=== PATIENT | female | born 2000 | race Hispanic/Latino ===

== ENCOUNTER 2019-12-09 19:02 | Emergency (ER) | payer OTHER, SELFPAY ==
--- NOTE | 2019-12-09 22:11 | EDPHYS ---
Physician Documentation [facility] Name: Sherrell Odom Age: 19 yrs Sex: Female : 2000 Arrival Date: 12/09/2019 Time: 19:07 Bed 18 Private MD: ED Physician Jarrod June HPI: 12/08 21:05 This 19 yrs old Female presents to ER via Wheelchair with complaints of Knee la1 Injury, Ankle Injury. 21:05 The patient presents with pain, that is acute. The complaints affect the right knee and la1 right ankle. Context: The problem was sustained anabaptism, resulted from a mis-step, the patient can partially bear weight, the patient is able to ambulate, with mild difficulty. Onset: The symptoms/episode began/occurred just prior to arrival. Associated signs and symptoms: Pertinent negatives calf tenderness, fever, numbness, tingling, weakness. Treatment prior to arrival includes: no previous treatment. Severity of symptoms: At their worst the symptoms were mild. 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 - Social history:: Smoking status: Patient denies any tobacco usage or history of. ROS: 21:06 Constitutional: Negative for fever, chills, and weight loss, Eyes: Negative for injury, la1 pain, redness, and discharge, Cardiovascular: Negative for chest pain, palpitations, and edema, Respiratory: Negative for shortness of breath, cough, wheezing, and pleuritic chest pain, Abdomen/GI: Negative for abdominal pain, nausea, vomiting, diarrhea, and constipation, Back: Negative for injury and pain. 21:06 Skin: Negative for injury, rash, and discoloration. 21:06 MS/extremity: Positive for pain, of the right knee and ankle. Exam: 21:07 Constitutional: This is a well developed, well nourished patient who is awake, alert, la1 and in no acute distress. Head/Face: Normocephalic, atraumatic. Chest/axilla: Normal chest wall appearance and motion. Respiratory: No increased work of breathing Back: No spinal tenderness. No costovertebral tenderness. Full range of motion. Skin: Warm, dry with normal turgor. Normal color with no rashes, no lesions, and no evidence of cellulitis. MS/ Extremity: Pulses equal, no cyanosis. Neurovascular intact. Full, normal range of motion. Vital Signs: 19:35 BP 101 / 61; Pulse 84; Resp 16; Temp 97.5; Pulse Ox 100% on R/A; Weight 79.38 kg; aa1 Height 5 ft. 2 in. (157.48 cm); Pain 9/10; 22:30 BP 115 / 75; Pulse 80; Resp 17; Temp 98.4; Pulse Ox 99% on R/A; rr5 19:35 Body Mass Index 32.01 (79.38 kg, 157.48 cm) aa1 MDM: 21:03 Patient medically screened. la1 22:09 Data reviewed: vital signs, nurses notes, radiologic studies, I have discussed the la1 patient's presentation/case with the attending Emergency Department Physician; and as a result, I will discharge patient. Data interpreted: Pulse oximetry: on room air is 100 %. Interpretation: normal. Test interpretation: by ED physician or midlevel provider: plain radiologic studies, no fractures or dislocations apparent on xray. Counseling: I had a detailed discussion with the patient and/or guardian regarding: the historical points, exam findings, and any diagnostic results supporting the discharge/admit diagnosis, radiology results, the need for outpatient follow up, a orthopedic surgeon. Admission orders: after a detailed discussion of the patient's condition and case, the admit orders are written by me. ED course: Pt able to bare weight without assistance, no obvious fractures on xray will have FU with ortho. 12/08 19:30 Order name: Knee Right 2 View XRAY tw4 12/08 19:30 Order name: Ankle Right 2 View XRAY tw4 Administered Medications: No medications were administered Disposition: 12/09 06:56 Co-signature as Attending Physician, Jarrod June MD I agree with the assessment and tw4 plan of care. Disposition: 12/09/19 22:10 Discharged to Home. Impression: Pain in right ankle and joints of right foot, Pain in right knee. - Condition is Stable. - Discharge Instructions: RICE for Routine Care of Injuries, Knee Pain, Ankle Pain. - Medication Reconciliation Form, Thank You Letter form. - Follow up: Private Physician; When: 5 - 6 days; Reason: Recheck today's complaints, Re-evaluation by your physician. - Problem is new. - Symptoms have improved. Signatures: Dispatcher [employer] EDMS Uyen Wilder RN RN aa1 Abdirizak Quinones, CANT GANG SAWYER-C CANT GANG SAWYER-Cla1 Jarrod June MD MD tw4 Osman De La Rosa RN RN rr5 Corrections: (The following items were deleted from the chart) 12/08 22:31 22:10 12/09/2019 22:10 Discharged to Home. Impression: Pain in right ankle and joints rr5 of right foot; Pain in right knee. Condition is Stable. Forms are Medication Reconciliation Form, Thank You Letter, Antibiotic Education, Prescription Opioid Use. Follow up: Private Physician; When: 5 - 6 days; Reason: Recheck today's complaints, Re-evaluation by your physician. Problem is new. Symptoms have improved. la1
--- NOTE | 2019-12-09 22:11 | ER ---
Nurse's Notes [facility] Name: Sherrell Odom Age: 19 yrs Sex: Female : 2000 Arrival Date: 12/09/2019 Time: 19:07 Bed 18 Private MD: Diagnosis: Pain in right ankle and joints of right foot;Pain in right knee Presentation: 12/08 19:35 Chief complaint: Patient states: she was playing a game at [employer] and jumped to catch a aa1 ball and when she landed she twisted her ankle. C/O pain in R ankle and R knee. No obvious injury noted. Coronavirus screen: The patient has NOT traveled to a country currently being monitored by the [facility] within the last 14 days. Proceed with normal triage procedures. Ebola Screen: No symptoms or risks identified at this time. Initial Sepsis Screen: Does the patient meet any 2 criteria? No. Patient's initial sepsis screen is negative. Does the patient have a suspected source of infection? No. Patient's initial sepsis screen is negative. Risk Assessment: Do you want to hurt yourself or someone else? Patient reports no desire to harm self or others. Onset of symptoms was December 09, 2019. Care prior to arrival: None. Transition of care: patient was not received from another setting of care. 19:35 Method Of Arrival: Wheelchair aa1 19:35 Acuity: BONILLA 4 aa1 Triage Assessment: 19:35 General: Appears in no apparent distress. comfortable, Behavior is calm, cooperative, aa1 appropriate for age. 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 - Social history:: Smoking status: Patient denies any tobacco usage or history of. Screenin:00 Abuse screen: Denies threats or abuse. Denies injuries from another. Nutritional rr5 screening: No deficits noted. Tuberculosis screening: No symptoms or risk factors identified. Fall Risk None identified. Total Encinas Fall Scale indicates No Risk (0-24 pts). Assessment: 21:00 General: Appears in no apparent distress. comfortable, Behavior is calm, cooperative, rr5 appropriate for age. 21:00 Pain: Complains of pain in right knee and anterior aspect of right ankle Pain does not rr5 radiate. Pain currently is 9 out of 10 on a pain scale. Quality of pain is described as aching, Pain began suddenly, Is intermittent. Neuro: Level of Consciousness is awake, alert, obeys commands, Oriented to person, place, time, situation. Cardiovascular: Capillary refill < 3 seconds Patient's skin is warm and dry. Respiratory: Airway is patent Respiratory effort is even, unlabored, Respiratory pattern is regular, symmetrical. GI: No signs and/or symptoms were reported involving the gastrointestinal system. : No signs and/or symptoms were reported regarding the genitourinary system. EENT: No signs and/or symptoms were reported regarding the EENT system. Derm: Skin is intact, is healthy with good turgor, Skin temperature is warm. Musculoskeletal: Circulation, motion, and sensation intact. Capillary refill < 3 seconds, Reports pain in right knee and anterior aspect of right ankle Pain is 9 out of 10 on a pain scale. 22:30 Reassessment: Patient appears in no apparent distress at this time. Patient is alert, rr5 oriented x 3, equal unlabored respirations, skin warm/dry/pink. discharge instruction given and explained without complaints made. Vital Signs: 19:35 BP 101 / 61; Pulse 84; Resp 16; Temp 97.5; Pulse Ox 100% on R/A; Weight 79.38 kg; aa1 Height 5 ft. 2 in. (157.48 cm); Pain 9/10; 22:30 BP 115 / 75; Pulse 80; Resp 17; Temp 98.4; Pulse Ox 99% on R/A; rr5 19:35 Body Mass Index 32.01 (79.38 kg, 157.48 cm) aa1 ED Course: 19:07 Patient arrived in ED. es 19:35 Arm band placed on right wrist. Patient placed in waiting room, Patient notified of aa1 wait time. 19:36 Triage completed. aa1 20:04 Knee Right 2 View XRAY In Process Unspecified. EDMS 20:04 Ankle Right 2 View XRAY In Process Unspecified. EDMS 20:48 Osman De La Rosa, CHOLO is Primary Nurse. rr5 21:03 Abdirizak Quinones FNP-C is [facility]. la1 21:03 Jarrod June MD is Attending Physician. la1 22:00 No provider procedures requiring assistance completed. Patient did not have IV access rr5 during this emergency room visit. 22:25 Royal wrap to right knee. rr5 22:30 Patient has correct armband on for positive identification. Bed in low position. Call rr5 light in reach. Administered Medications: No medications were administered Outcome: 22:10 Discharge ordered by . la1 22:30 Discharged to home ambulatory, with family. rr5 22:30 Condition: stable 22:30 Discharge instructions given to patient, Instructed on discharge instructions, follow up and referral plans. Demonstrated understanding of instructions, follow-up care. 22:31 Patient left the ED. rr5 Signatures: Dispatcher [employer] EDUyen Mustafa, RN RN aa1 Milagros Jessica Lee, FNP-C SALES OPERATIONS DIRECTOR-[facility] Osman De La Rosa RN RN rr5
[2019-12-09 23:02] VITALS: BP 101/61; TEMP 97.5; O2SAT 100
--- NOTE | 2019-12-10 08:27 | RAD REPORT ---
EXAM DESCRIPTION: RAD - Knee Right 2 View - 12/09/2019 8:05 pm CLINICAL HISTORY: PAIN, knee injury COMPARISON: No comparisons FINDINGS: No fracture, dislocation or periosteal reaction.No joint effusion seen. No joint space katie rowing. No foreign body or soft tissue abnormality. Cortical lucency over the proximal tibia on the A P projection is believed to be a summation artifact. IMPRESSION: Negative right knee. Clinical concerns for internal derangement or occult bony injury could be further assessed with MR imaging.
--- NOTE | 2019-12-10 08:28 | RAD REPORT ---
EXAM DESCRIPTION: RAD - Ankle Right 2 View - 12/09/2019 8:03 pm CLINICAL HISTORY: PAIN, trauma, ankle injury COMPARISON: No comparisons FINDINGS: No fracture, dislocation or periosteal reaction. No joint effusion seen. No joint space na rrowing. No soft tissue abnormality. IMPRESSION: Negative right ankle
== END 2019-12-09 22:31 | disposition home or self-care (01) ==
LOC: ER 19:02
DX: M25.571 Pain in right ankle and joints of right foot (principal); M25.561 Pain in right knee; X50.1XXA Overexertion from prolonged static or awkward postures, initial encounter; Y93.89 Activity, other specified; Y92.9 Unspecified place or not applicable; Y99.8 Other external cause status; Z88.0 Allergy status to penicillin
CPT/HCPCS: 99283

== ENCOUNTER 2021-02-21 00:27 | Emergency (ER) | payer SELFPAY ==
[2021-02-21] MEDS ORDERED: FLUORESCEIN SODIUM 1 MG/WRAP ONE (01:35)
[2021-02-21] MEDS ORDERED: TETRACAINE HCL 0.5% 4ML OPTH ONE (01:35)
--- NOTE | 2021-02-21 02:07 | EDPHYS ---
Physician Documentation [facility] Name: Sherrell Odom Age: 20 yrs Sex: Female : 2000 Arrival Date: 02/21/2021 Time: 00:30 Bed 23 Private MD: ED Physician Segundo Hidalgo HPI: 02/21 02:01 This 20 yrs old Female presents to ER via Ambulatory with complaints of mh7 Redness of Eye, Eye Pain. 02:01 The patient is experiencing burning, matting or discharge, pain, redness, tearing, The mh7 patient sustained None. to the left eye, caused by an unknown mechanism. Onset: The symptoms/episode began/occurred yesterday. Duration: the symptoms are continuous. Aggravated by rubbing, Alleviated by nothing. Associated signs and symptoms: Pertinent negatives: chills, dizziness, ear ache, fever, headache, runny nose. Patient wears soft contacts. Severity of symptoms: At their worst the symptoms were moderate last night, in the emergency department the symptoms are unchanged. 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 - Social history:: Smoking status: Patient denies any tobacco usage or history of. ROS: 02:01 Constitutional: Negative for fever, chills, and weight loss, ENT: Negative for injury, mh7 pain, and discharge, Neck: Negative for injury, pain, and swelling, Cardiovascular: Negative for chest pain, palpitations, and edema, Respiratory: Negative for shortness of breath, cough, wheezing, and pleuritic chest pain, Abdomen/GI: Negative for abdominal pain, nausea, vomiting, diarrhea, and constipation, Back: Negative for injury and pain, : Negative for injury, bleeding, discharge, and swelling, MS/Extremity: Negative for injury and deformity, Skin: Negative for injury, rash, and discoloration, Neuro: Negative for headache, weakness, numbness, tingling, and seizure, Psych: Negative for depression, anxiety, suicide ideation, homicidal ideation, and hallucinations, Allergy/Immunology: Negative for hives, rash, and allergies, Endocrine: Negative for neck swelling, polydipsia, polyuria, polyphagia, and marked weight changes, Hematologic/Lymphatic: Negative for swollen nodes, abnormal bleeding, and unusual bruising. Exam: 02:01 Constitutional: This is a well developed, well nourished patient who is awake, alert, mh7 and in no acute distress. Head/Face: Normocephalic, atraumatic. 02:01 Neck: Trachea midline, no thyromegaly or masses palpated, and no cervical lymphadenopathy. Supple, full range of motion without nuchal rigidity, or vertebral point tenderness. No Meningismus. Skin: Warm, dry with normal turgor. Normal color with no rashes, no lesions, and no evidence of cellulitis. Neuro: Awake and alert, GCS 15, oriented to person, place, time, and situation. Cranial nerves II-XII grossly intact. Motor strength 5/5 in all extremities. Sensory grossly intact. Cerebellar exam normal. Normal gait. Psych: Awake, alert, with orientation to person, place and time. Behavior, mood, and affect are within normal limits. 02:01 Eyes: Periorbital structures: appear normal, Pupils: equal, round, and reactive to light and accomodation, Extraocular movements: intact throughout, Conjunctiva: injected, in the left eye, Corneas: abrasion, that is moderate sized, on the left, at 6 o'clock, a fluorescein strip employed to appreciate the findings, Sclera: no appreciated abnormality, Lids and lashes: appear normal, funduscopic exam reveals no obvious abnormalities, Visual wright: are intact, Nystagmus: is not appreciated, Intraocular pressure: unable to test, no instrument available, no slit lamp available. Vital Signs: 00:54 BP 111 / 74; Pulse 64; Resp 16 S; Temp 98.5(O); Pulse Ox 99% on R/A; Weight 72.12 kg bb (R); Height 5 ft. 3 in. (160.02 cm) (R); Pain 7/10; 00:54 Body Mass Index 28.17 (72.12 kg, 160.02 cm) bb MDM: 02:01 Differential diagnosis: Corneal abrasion of left eye. Corneal ulcer of left eye. mh7 Foreign body in left eye. Acute iritis of left eye. Chemical conjunctivitis in left eye. Allergic conjunctivitis in left eye. Infectious conjunctivitis in left eye. Data reviewed: vital signs, nurses notes. Counseling: I had a detailed discussion with the patient and/or guardian regarding: the historical points, exam findings, and any diagnostic results supporting the discharge/admit diagnosis, the need for outpatient follow up, an opthalmologist, to return to the emergency department if symptoms worsen or persist or if there are any questions or concerns that arise at home. Response to treatment: the patient's symptoms have markedly improved after treatment. 02:07 Patient medically screened. mh7 02/21 02:30 Order name: Eye Tray; Complete Time: :30 bb Administered Medications: 02:00 Drug: Tetracaine Drops 0.5 % 1 drops {Note: administered by Dr Hidalgo.} Route: bb Ophthalmic; Site: left eye; :31 Follow up: Response: No adverse reaction bb 02:00 Drug: Fluorescein Strip 1 strip {Note: administered by Dr Hidalgo.} Route: Ophthalmic; bb Site: left eye; :31 Follow up: Response: No adverse reaction bb Disposition: 02/21/21 02:07 Discharged to Home. Impression: Corneal Abrasion, Left. - Condition is Stable. - Prescriptions for Ciloxan 0.3 % Ophthalmic Drops - instill 2 drop by OPHTHALMIC route every 6 hours for 7 days; 5 milliliter. Ibuprofen 600 mg Oral Tablet - take 1 tablet by ORAL route every 8 hours As needed take with food; 15 tablet. - Medication Reconciliation Form, Thank You Letter, Antibiotic Education, Prescription Opioid Use form. - Follow up: Private Physician; When: 1 - 2 days; Reason: Worsening of condition, Recheck today's complaints, Continuance of care, Re-evaluation by your physician. Follow up: Mildred Smith MD; When: 1 - 2 days; Reason: Worsening of condition, Recheck today's complaints. - Problem is new. - Symptoms have improved. Signatures: Jennyfer Beckham RN RN bb Segundo Hidalgo MD MD mh7 Corrections: (The following items were deleted from the chart) 02:32 02:07 02/21/2021 02:07 Discharged to Home. Impression: Corneal Abrasion, Left. bb Condition is Stable. Forms are Medication Reconciliation Form, Thank You Letter, Antibiotic Education, Prescription Opioid Use. Follow up: Private Physician; When: 1 - 2 days; Reason: Worsening of condition, Recheck today's complaints, Continuance of care, Re-evaluation by your physician. Follow up: Mildred Smith; When: 1 - 2 days; Reason: Worsening of condition, Recheck today's complaints. Problem is new. Symptoms have improved. mh7
--- NOTE | 2021-02-21 02:07 | ER ---
Nurse's Notes [facility] Name: Sherrell Odom Age: 20 yrs Sex: Female : 2000 Arrival Date: 02/21/2021 Time: 00:30 Bed 23 Private MD: Diagnosis: Corneal Abrasion, Left Presentation: 02/21 00:54 Chief complaint: Patient states: her left eye became red and irritated this morning bb denies loss of vision does wear contact lenses. Coronavirus screen: At this time, the client does not indicate any symptoms associated with coronavirus-19. Ebola Screen: No symptoms or risks identified at this time. Mechanism of Injury: No Mechanism of Injury. The patient denies any loss of vision. Initial Sepsis Screen: Does the patient meet any 2 criteria? No. Patient's initial sepsis screen is negative. Does the patient have a suspected source of infection? No. Patient's initial sepsis screen is negative. Risk Assessment: Do you want to hurt yourself or someone else? Patient reports no desire to harm self or others. Onset of symptoms was February 20, 2021. 00:54 Method Of Arrival: Ambulatory bb 00:54 Acuity: BONILLA 4 bb Triage Assessment: 00:56 General: Appears in no apparent distress. uncomfortable, Behavior is calm, cooperative. bb Pain: Complains of pain in left eye Pain currently is 7 out of 10 on a pain scale. EENT: sclera left eye reddened. Neuro: Level of Consciousness is awake, alert, obeys commands, Oriented to person, place, time, situation. Cardiovascular: Capillary refill < 3 seconds Patient's skin is warm and dry. Respiratory: Respiratory effort is even, unlabored, Respiratory pattern is regular. GI: No signs and/or symptoms were reported involving the gastrointestinal system. Derm: Skin is pink, warm \T\ dry. Musculoskeletal: Circulation, motion, and sensation intact. 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 - Social history:: Smoking status: Patient denies any tobacco usage or history of. Screenin:15 Abuse screen: Denies threats or abuse. Nutritional screening: No deficits noted. bb Tuberculosis screening: No symptoms or risk factors identified. Fall Risk None identified. Assessment: 01:15 Reassessment: No changes from previously documented assessment. see triage assessment. bb 01:15 EENT: Eyes sclera to left eye is reddened. Sclera/Cornea are reddened in left eye. bb 01:49 Reassessment: Dr Hidalgo at bedside for pt evaluation. bb 02:29 Reassessment: Patient is alert, oriented x 3, equal unlabored respirations, skin bb warm/dry/pink. pt verbalized understanding of and agrees to plan of care discharge instructions given pt ambulated with steady gait to exit accompanied by friend. Vital Signs: 00:54 BP 111 / 74; Pulse 64; Resp 16 S; Temp 98.5(O); Pulse Ox 99% on R/A; Weight 72.12 kg bb (R); Height 5 ft. 3 in. (160.02 cm) (R); Pain 7/10; 00:54 Body Mass Index 28.17 (72.12 kg, 160.02 cm) bb ED Course: 00:30 Patient arrived in ED. cf2 00:55 Triage completed. bb 00:56 Arm band placed on Patient placed in waiting room, Patient notified of wait time. bb 01:15 Jennyfer Beckham, RN is Primary Nurse. bb 01:15 Patient has correct armband on for positive identification. Bed in low position. Call bb light in reach. Side rails up X 1. 01:42 Segundo Hidalgo MD is Attending Physician. [facility] 02:06 Mildred Smith MD is Referral Physician. [facility] 02:31 No provider procedures requiring assistance completed. Patient did not have IV access bb during this emergency room visit. Administered Medications: 02:00 Drug: Tetracaine Drops 0.5 % 1 drops {Note: administered by Dr Hidalgo.} Route: bb Ophthalmic; Site: left eye; :31 Follow up: Response: No adverse reaction bb 02:00 Drug: Fluorescein Strip 1 strip {Note: administered by Dr Hidalgo.} Route: Ophthalmic; bb Site: left eye; 02:31 Follow up: Response: No adverse reaction bb Outcome: 02:07 Discharge ordered by . [facility] 02:31 Discharged to home ambulatory, with friend. chelita 02:31 Condition: stable 02:31 Discharge instructions given to patient, Instructed on discharge instructions, follow up and referral plans. medication usage, Demonstrated understanding of instructions, follow-up care, medications, Prescriptions given X 2. 02:32 Patient left the ED. chelita Signatures: Jennyfer Beckham RN RN Cristy Cárdenas 2 Segundo Hidalgo MD MD mh7
[2021-02-21 02:45] VITALS: BP 111/74; TEMP 98.5; O2SAT 99
== END 2021-02-21 02:32 | disposition home or self-care (01) ==
LOC: ER 00:27
DX: S05.02XA Injury of conjunctiva and corneal abrasion without foreign body, left eye, initial encounter (principal); Z88.0 Allergy status to penicillin
CPT/HCPCS: 99283

== ENCOUNTER → 2023-12-16 | Emergency (ER) | payer OTHER, SELFPAY ==
[~2023-12-16] MED LIST: DIPHENHYDRAMINE 50 MG/ML VIAL ONE; KETOROLAC 30 MG/ML INJ ONE; METOCLOPRAMIDE 10 MG/2mL INJ ONE; NA CHLORIDE 0.9% 1,000 ML ONE
--- OUTSIDE RECORDS SUMMARY | 2023-12-16 05:41 | XMS REPORT | Continuity of Care Document ---
Author Name Unknown Address [address] [facility] [place] [address] [facility] Address [address] [facility] [place] [address] Care Team Providers Care Consumer Insight Analyst Name Role Phone VIRGINIA MEDRANO Primary Care Physician SANDRA Mccormack Attending Clinician SANDRA Farnsworth Attending Clinician Farrah porter Doctor Unassigned, [place] Attending Clinician U LEATHA Flanagan Attending Clinician Unavailable MARÍA MCDONOUGH Attending Clinician Unavailable María Mcdonough MD Attending Clinician [phone] Greg Malik MD Attending Clinician [phone] Fontanbrenna BLANK, FLIGHT CREW TIME CLERK, R Attending Clinician [phone] Pob, [facility] Main Attending Clinician Unavailabl e 2, [facility] Attending Clinician Unavailable Leatha Jacques PA-C Attending Clinician [phone] Lashaun Murphy MD Attending Clinician [phone] JAMISON KIM Attending Clinician Unavailable 1, -[facility] Us Room Attending Clinician Unavailab Jamison Bar MD Attending Clinician [phone] [facility] Attending Clinician + Jessica Laurent RN Attending Clinician Unavailable CATARINO DAY Attending Clinician Unavailable [facility], [facility] Attending Clinician Unavailable Solange WHEELER, Vianney Kirby Attending Clinician [phone] VIR[place]IA MEDRANO Attending Clinician Unavail able VANESSA MADDEN Attending Clinician Unavailable VANESSA MADDEN Attending Clinician Unavailable Vanessa Madden MD Attending Clinician [phone] MARÍA MCDONOUGH Admitting Clinician Unavailable María Mcdonough MD Admitting Clinician Payers Payer Name Policy Type Policy Number Effective Date Expirati on Date Source KEYON NUÑEZ [id number] 2021 00:00:[address] [facility] [id number] 2022 00:00:00 2022 00:00:00 [place] [id number] 2022 00:00:00 Problems Condition Name Condition Details Condition Category Status Onset Date Resolution Date Last Treatment Date Treating Clinician Comments Source Liveborn , of [place] , born in hospital by vaginal delivery Liveborn infant, of [place] , born in hospital by vaginal delivery Disease Active 9-13 00:00: 00 [facility] 39 weeks gestation of 39 weeks gestation of Disease Active -12 00:00: 00 [facility] Encounter for planned induction of labor Encounter for planned induction of labor Disease Active 9-12 00:00: 00 [facility] Acute cystitis without hematuria Acute cystitis without hematuria Disease Active 3-07 00:00: 00 [facility] 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 Repeat pap in 12 months [facility] Susceptibl e to varicella (non-immun e), currently Susceptibl e to varicella (non-immun e), currently Disease Active 2- 00:00: 00 Overview: Formattin g of this note might be different from the original. Address pp [facility] Supervisio n of high-risk Supervisio n of high-risk Disease Active 2- 00:00: 00 [facility] Allergies, Adverse Reactions, Alerts Allergy Name Allergy Type Status Severity Reaction(s) Onset Date Inactive Date Treating Clinician Comments Source PENICILL IN DRUG INGREDI Active Rash 10-28 00:00: 00 [facility] Penicill in Propensi ty to adverse reaction s Active Rash 10-28 00:00: 00 [facility] Social History Social Habit Start Date Stop Date Quantity Comments Source ASSERTION 2021-09-18 00:00:00 [facility] History of Social function 2022-06-09 00:00:00 2022-06-09 00:00:00 [facility] Exposure to SARS-CoV-2 (event) 2022-05-29 00:00:00 2022-06-08 12:11:00 Not sure [facility] Alcohol intake 2021-12-01 00:00:00 2021-12-01 00:00:00 Ex-drinker (finding) [facility] Tobacco use and exposure 2021-10-28 00:00:00 2021-10-28 00:00:00 Smokeless tobacco non-user [facility] Sex Assigned At 2000 00:00:00 2000 00:00:00 [facility] Smoking Status Start Date Stop Date Source Never smoked tobacco [facility] Medications Ordered Medication Name Filled Medication Name Start Date Stop Date Current Medication? Ordering Clinician Indication Dosage Frequency Signature (SIG) Comments Components Source vitamin w/FA tablet 06-10 00:00: 00 Yes [id number] 1{tbl} Take 1 tablet by mouth in the morning. [facility] docusate 100 mg capsule 06-10 00:00: 00 Yes [id number] 200mg Take 2 capsules by mouth once daily as needed for Constipati on. [facility] ferrous sulfate 325 mg (65 mg iron) tablet 06-10 00:00: 00 Yes [id number] 325mg Take 1 tablet by mouth in the morning and 1 tablet in the evening. [facility] ibuprofen 600 mg tablet 06-10 00:00: 00 Yes [id number] 600mg Take 1 tablet by mouth every 6 (six) hours as needed (Pain). Take with food or milk. [facility] vitamin w/FA tablet 06-10 00:00: 00 Yes [id number] 1{tbl} Take 1 tablet by mouth in the morning. [facility] docusate 100 mg capsule 06-10 00:00: 00 Yes [id number] 200mg Take 2 capsules by mouth once daily as needed for Constipati on. [facility] ferrous sulfate 325 mg (65 mg iron) tablet 06-10 00:00: 00 Yes [id number] 325mg Take 1 tablet by mouth in the morning and 1 tablet in the evening. [facility] ibuprofen 600 mg tablet 06-10 00:00: 00 Yes [id number] 600mg Take 1 tablet by mouth every 6 (six) hours as needed (Pain). Take with food or milk. [facility] rho(D) immune globulin (RHOGAM) syringe 300 mcg 06-09 10:12: 24 Yes 300ug 300 mcg, Intramuscu lar, ONCE, For 1 dose, Conditiona l, Routine [facility] witch Jennifer (TUCKS) 50 % topical pad 06-09 10:12: 19 Yes Topical, Q4HPRN, Starting on Wed06/09/22 at 0512, Until Discontinu ed, Routine, rectal/hem orrhoidal pain [facility] HYDROcodone -acetaminop hen (NORCO 5) 5-325 mg tablet 1 tablet 06-09 10:12: 19 Yes 1{tbl} 1 tablet, Oral, Q6HPRN, Starting on Wed06/09/22 at 0512, Until Discontinu ed, Routine, Pain (scale 7-10) [facility] ibuprofen (IBU) tablet 600 mg 06-09 10:12: 19 Yes 600mg 600 mg, Oral, Q6HPRN, Starting on Wed06/09/22 at 0512, Until Discontinu ed, Routine, Pain (scale 4-6) [facility] acetaminoph en (TYLENOL) tablet 650 mg 06-09 10:12: 19 Yes 650mg 650 mg, Oral, Q6HPRN, Starting on Wed06/09/22 at 05, Until Discontinu ed, Routine, Pain (scale 1-3) [facility] diphenhydrA MINE (BENADRYL) tablet 25 mg 06-09 10:12: 19 Yes 25mg 25 mg, Oral, Q6HPRN, Starting on Wed06/09/22 at 511, Until Discontinu ed, Routine, Sleep, Itching [facility] ondansetron (ZOFRAN (PF)) injection 4 mg 06-09 10:12: 19 Yes 4mg 4 mg, Slow IV Push, Q8HPRN, Starting on Wed06/09/22 at 511, Until Discontinu ed, Routine, Nausea and Vomiting (N/V) [facility] simethicone (GAS RELIEF (SIMETHICON E)) chewable tablet 160 mg 06-09 10:12: 19 Yes 160mg 160 mg, Oral, PC+HSPRN, Starting on Wed06/09/22 at 05, Until Discontinu ed, Routine, Gas [facility] docusate (COLACE) capsule 200 mg 06-09 10:12: 19 Yes 200mg 200 mg, Oral, QDAILYPRN, Starting on Wed06/09/22 at 05, Until Discontinu ed, Routine, Constipati on [facility] magnesium hydroxide (MILK OF MAGNESIA) 400 mg/5 mL suspension 30 mL 06-09 10:12: 19 Yes 30mL 30 mL, Oral, QDAILYPRN, Starting on Wed06/09/22 at 05, Until Discontinu ed, Routine, Constipati on [facility] benzocaine- menthol (DERMOPLAST ) 20-0.5 % topical spray 06-09 10:12: 19 Yes Topical, PRN, Starting on Wed06/09/22 at 05, Until Discontinu ed, Routine, Perineum discomfort [facility] fentaNYL-ro pivacaine 2 mcg/mL-0.1 % (PF) in NS 200 mL epidural infusion RTU 06-09 03:43: 00 06-09 12:09 :16 No Epidural, CONTINUOUS PRN, Starting on Wed06/08/22 at 2243, Until Wed06/09/22 at 0709, Routine, Intra-op [facility] fentaNYL-ro pivacaine 2 mcg/mL-0.1 % (PF) in NS 200 mL epidural infusion RTU 06-09 03:31: 00 06-09 12:09 :16 No Epidural, ONCE INTRA PROCEDURE, Starting on Wed06/08/22 at 2231, Until Wed06/09/22 at 0709, Routine, Intra-op [facility] lidocaine-e pinephrine (XYLOCAINE W/EPINEPHRI NE) 1.5 %-1:200,000 injection 06-09 03:27: 00 06-09 12:09 :16 No Epidural, ONCE INTRA PROCEDURE, Starting on Wed06/08/22 at 2227, Until Wed06/09/22 at 0709, Routine, Intra-op [facility] oxytocin (PITOCIN) 30 units in NS 500 mL IV infusion 06-08 17:50: 52 06-09 10:12 :22 No 2mU/min at 2-40 mL/hr, IV Infusion, TITRATE, Starting on Wed06/08/22 at 1250, Until Wed06/09/22 at 0512, BELGICA [facility] lactated ringers IV infusion 500 mL 06-08 17:45: 00 06-08 18:03 :00 No 500mL at 999 mL/hr, 500 mL, IV Infusion, ONCE, 1 dose, On Wed06/08/22 at 1245, Routine [facility] lactated ringers IV infusion 500 mL 06-08 16:54: 24 06-09 10:12 :22 No 500mL at 999 mL/hr, 500 mL, IV Infusion, PRN - SEE INSTRUCTIO NS, Starting on Wed06/08/22 at 1154, Until Wed06/09/22 at 0512, Routine [facility] lactated ringers IV infusion 500 mL 06-08 16:54: 24 06-09 03:28 :25 No 500mL at 999 mL/hr, 500 mL, IV Infusion, PRN - SEE INSTRUCTIO NS, 1 dose, Starting on Wed06/08/22 at 1154, Until Wed06/08/22 at 2228, Routine [facility] proMETHazin e (PHENERGAN) 25 mg in NaCl 0.9% (NS) 50 mL IV piggyback 06-08 16:54: 24 06-09 10:12 :22 No 25mg 25 mg, IV Piggyback, Q4HPRN, Starting on Wed06/08/22 at 1154, Until Wed06/09/22 at 0512, Routine, Nausea and Vomiting (N/V) [facility] D5W-LR IV infusion 1,000 mL 06-08 16:54: 24 06-09 10:12 :22 No 1000mL at 1-125 mL/hr, IV Infusion, TITRATE, Starting on Wed06/08/22 at 1154, Until Wed06/09/22 at 0512, Routine [facility] metroNIDAZO LE (FLAGYL) tablet 500 mg 04-14 05:45: 00 04-14 04:54 :00 No 500mg 500 mg, Oral, ONCE, 1 dose, On Wed04/14/22 at 0045, Routine
Reason for Anti-Infec tive: Documented Infection [facility] metroNIDAZO LE (FLAGYL) 500 mg tablet 04-14 00:00: 00 Yes [id number] 500mg Take 1 tablet by mouth every 12 (twelve) hours. [facility] metroNIDAZO LE (FLAGYL) 500 mg tablet 04-14 00:00: 00 Yes [id number] 500mg Take 1 tablet by mouth every 12 (twelve) hours. [facility] metroNIDAZO LE (FLAGYL) 500 mg tablet 04-14 00:00: 00 Yes [id number] 500mg Take 1 tablet by mouth every 12 (twelve) hours. [facility] metroNIDAZO LE (FLAGYL) 500 mg tablet 19 00:00: 00 Yes [id number] 500mg Take 1 tablet by mouth every 12 (twelve) hours. [facility] metroNIDAZO LE (FLAGYL) 500 mg tablet 04-14 00:00: 00 Yes [id number] 500mg Take 1 tablet by mouth every 12 (twelve) hours. [facility] metroNIDAZO LE (FLAGYL) 500 mg tablet 0 04-14 00:00: 00 Yes [id number] 500mg Take 1 tablet by mouth every 12 (twelve) hours. [facility] metroNIDAZO LE (FLAGYL) 500 mg tablet 0 04-14 00:00: 00 Yes [id number] 500mg Take 1 tablet by mouth every 12 (twelve) hours. [facility] metroNIDAZO LE (FLAGYL) 500 mg tablet 04-14 00:00: 00 06-02 00:00 :00 No [id number] 500mg Take 1 tablet by mouth every 12 (twelve) hours. [facility] ferrous sulfate 325 mg (65 mg iron) tablet 03-25 00:00: 00 Yes [id number] 325mg Take 1 tablet by mouth daily. [facility] ferrous sulfate 325 mg (65 mg iron) tablet 03-25 00:00: 00 Yes [id number] 325mg Take 1 tablet by mouth daily. [facility] ferrous sulfate 325 mg (65 mg iron) tablet 0 03-25 00:00: 00 Yes [id number] 325mg Take 1 tablet by mouth daily. [facility] ferrous sulfate 325 mg (65 mg iron) tablet 0 03-25 00:00: 00 Yes [id number] 325mg Take 1 tablet by mouth daily. [facility] ferrous sulfate 325 mg (65 mg iron) tablet 0 03-25 00:00: 00 Yes [id number] 325mg Take 1 tablet by mouth daily. [facility] ferrous sulfate 325 mg (65 mg iron) tablet 0 03-25 00:00: 00 Yes [id number] 325mg Take 1 tablet by mouth daily. [facility] ferrous sulfate 325 mg (65 mg iron) tablet 03-25 00:00: 00 Yes [id number] 325mg Take 1 tablet by mouth daily. [facility] ferrous sulfate 325 mg (65 mg iron) tablet 03-25 00:00: 00 Yes [id number] 325mg Take 1 tablet by mouth daily. [facility] ferrous sulfate 325 mg (65 mg iron) tablet 03-25 00:00: 00 Yes [id number] 325mg Take 1 tablet by mouth daily. [facility] ferrous sulfate 325 mg (65 mg iron) tablet 03-25 00:00: 00 Yes [id number] 325mg Take 1 tablet by mouth daily. [facility] ferrous sulfate 325 mg (65 mg iron) tablet 03-25 00:00: 00 Yes [id number] 325mg Take 1 tablet by mouth daily. [facility] ferrous sulfate 325 mg (65 mg iron) tablet 03-25 00:00: 00 Yes [id number] 325mg Take 1 tablet by mouth daily. [facility] ferrous sulfate 325 mg (65 mg iron) tablet 03-25 00:00: 00 Yes [id number] 325mg Take 1 tablet by mouth daily. [facility] ferrous sulfate 325 mg (65 mg iron) tablet 03-25 00:00: 00 Yes [id number] 325mg Take 1 tablet by mouth daily. [facility] ferrous sulfate 325 mg (65 mg iron) tablet 03-25 00:00: 00 Yes [id number] 325mg Take 1 tablet by mouth daily. [facility] ferrous sulfate 325 mg (65 mg iron) tablet 03-25 00:00: 00 Yes [id number] 325mg Take 1 tablet by mouth daily. [facility] ferrous sulfate 325 mg (65 mg iron) tablet 03-25 00:00: 00 06-10 00:00 :00 No [id number] 325mg Take 1 tablet by mouth daily. [facility] polycarboph il (FIBERCON) 625 mg tablet 03-24 00:00: 00 Yes [id number] 625mg Take 1 tablet by mouth daily. [facility] docusate (COLACE) 100 mg capsule 0 03-24 00:00: 00 Yes [id number] 100mg Take 1 capsule by mouth once daily as needed for Constipati on. [facility] polycarboph il (FIBERCON) 625 mg tablet 0 03-24 00:00: 00 Yes [id number] 625mg Take 1 tablet by mouth daily. [facility] docusate (COLACE) 100 mg capsule 0 03-24 00:00: 00 Yes [id number] 100mg Take 1 capsule by mouth once daily as needed for Constipati on. [facility] polycarboph il (FIBERCON) 625 mg tablet 0 03-24 00:00: 00 Yes [id number] 625mg Take 1 tablet by mouth daily. [facility] docusate (COLACE) 100 mg capsule 0 03-24 00:00: 00 Yes [id number] 100mg Take 1 capsule by mouth once daily as needed for Constipati on. [facility] polycarboph il (FIBERCON) 625 mg tablet 0 03-24 00:00: 00 Yes [id number] 625mg Take 1 tablet by mouth daily. [facility] docusate (COLACE) 100 mg capsule 0 03-24 00:00: 00 Yes [id number] 100mg Take 1 capsule by mouth once daily as needed for Constipati on. [facility] polycarboph il (FIBERCON) 625 mg tablet 0 03-24 00:00: 00 Yes [id number] 625mg Take 1 tablet by mouth daily. [facility] docusate (COLACE) 100 mg capsule 0 03-24 00:00: 00 Yes [id number] 100mg Take 1 capsule by mouth once daily as needed for Constipati on. [facility] polycarboph il (FIBERCON) 625 mg tablet 0 03-24 00:00: 00 Yes [id number] 625mg Take 1 tablet by mouth daily. [facility] docusate (COLACE) 100 mg capsule 2021-0 03-24 00:00: 00 Yes [id number] 100mg Take 1 capsule by mouth once daily as needed for Constipati on. [facility] polycarboph il (FIBERCON) 625 mg tablet 0 03-24 00:00: 00 Yes [id number] 625mg Take 1 tablet by mouth daily. [facility] docusate (COLACE) 100 mg capsule 0 03-24 00:00: 00 Yes [id number] 100mg Take 1 capsule by mouth once daily as needed for Constipati on. [facility] polycarboph il (FIBERCON) 625 mg tablet 0 03-24 00:00: 00 Yes [id number] 625mg Take 1 tablet by mouth daily. [facility] docusate (COLACE) 100 mg capsule 0 03-24 00:00: 00 Yes [id number] 100mg Take 1 capsule by mouth once daily as needed for Constipati on. [facility] polycarboph il (FIBERCON) 625 mg tablet 0 03-24 00:00: 00 Yes [id number] 625mg Take 1 tablet by mouth daily. [facility] docusate (COLACE) 100 mg capsule 0 03-24 00:00: 00 Yes [id number] 100mg Take 1 capsule by mouth once daily as needed for Constipati on. [facility] polycarboph il (FIBERCON) 625 mg tablet 0 03-24 00:00: 00 Yes [id number] 625mg Take 1 tablet by mouth daily. [facility] docusate (COLACE) 100 mg capsule 2021-0 03-24 00:00: 00 Yes [id number] 100mg Take 1 capsule by mouth once daily as needed for Constipati on. [facility] polycarboph il (FIBERCON) 625 mg tablet 0 03-24 00:00: 00 Yes [id number] 625mg Take 1 tablet by mouth daily. [facility] docusate (COLACE) 100 mg capsule 2021-0 03-24 00:00: 00 Yes [id number] 100mg Take 1 capsule by mouth once daily as needed for Constipati on. [facility] polycarboph il (FIBERCON) 625 mg tablet 2021-0 03-24 00:00: 00 Yes [id number] 625mg Take 1 tablet by mouth daily. [facility] docusate (COLACE) 100 mg capsule 0 03-24 00:00: 00 Yes [id number] 100mg Take 1 capsule by mouth once daily as needed for Constipati on. [facility] polycarboph il (FIBERCON) 625 mg tablet 0 03-24 00:00: 00 Yes [id number] 625mg Take 1 tablet by mouth daily. [facility] docusate (COLACE) 100 mg capsule 2021-0 03-24 00:00: 00 Yes [id number] 100mg Take 1 capsule by mouth once daily as needed for Constipati on. [facility] polycarboph il (FIBERCON) 625 mg tablet 0 03-24 00:00: 00 Yes [id number] 625mg Take 1 tablet by mouth daily. [facility] docusate (COLACE) 100 mg capsule 0 03-24 00:00: 00 Yes [id number] 100mg Take 1 capsule by mouth once daily as needed for Constipati on. [facility] polycarboph il (FIBERCON) 625 mg tablet 0 03-24 00:00: 00 Yes [id number] 625mg Take 1 tablet by mouth daily. [facility] docusate (COLACE) 100 mg capsule 0 03-24 00:00: 00 Yes [id number] 100mg Take 1 capsule by mouth once daily as needed for Constipati on. [facility] polycarboph il (FIBERCON) 625 mg tablet 0 03-24 00:00: 00 Yes [id number] 625mg Take 1 tablet by mouth daily. [facility] docusate (COLACE) 100 mg capsule 2021-0 03-24 00:00: 00 Yes [id number] 100mg Take 1 capsule by mouth once daily as needed for Constipati on. [facility] polycarboph il (FIBERCON) 625 mg tablet 2021-0 03-24 00:00: 00 Yes [id number] 625mg Take 1 tablet by mouth daily. [facility] docusate (COLACE) 100 mg capsule 20203-24 00:00: 00 Yes [id number] 100mg Take 1 capsule by mouth once daily as needed for Constipati on. [facility] polycarboph il (FIBERCON) 625 mg tablet 03-24 00:00: 00 Yes [id number] 625mg Take 1 tablet by mouth daily. [facility] polycarboph il (FIBERCON) 625 mg tablet 03-24 00:00: 00 Yes [id number] 625mg Take 1 tablet by mouth daily. [facility] docusate (COLACE) 100 mg capsule 03-24 00:00: 00 06-10 00:00 :00 No [id number] 100mg Take 1 capsule by mouth once daily as needed for Constipati on. [facility] multivitami n ( VITAMIN) tablet 02-24 00:00: 00 Yes [id number] 1{tbl} Take 1 tablet by mouth daily. [facility] multivitami n ( VITAMIN) tablet 02-24 00:00: 00 Yes [id number] 1{tbl} Take 1 tablet by mouth daily. [facility] multivitami n ( VITAMIN) tablet 02-24 00:00: 00 Yes [id number] 1{tbl} Take 1 tablet by mouth daily. [facility] multivitami n ( VITAMIN) tablet 02-24 00:00: 00 Yes [id number] 1{tbl} Take 1 tablet by mouth daily. [facility] multivitami n ( VITAMIN) tablet 02-24 00:00: 00 Yes [id number] 1{tbl} Take 1 tablet by mouth daily. [facility] multivitami n ( VITAMIN) tablet 02-24 00:00: 00 Yes [id number] 1{tbl} Take 1 tablet by mouth daily. [facility] multivitami n ( VITAMIN) tablet 02-24 00:00: 00 Yes [id number] 1{tbl} Take 1 tablet by mouth daily. [facility] multivitami n ( VITAMIN) tablet 02-24 00:00: 00 Yes [id number] 1{tbl} Take 1 tablet by mouth daily. [facility] multivitami n ( VITAMIN) tablet 02-24 00:00: 00 Yes [id number] 1{tbl} Take 1 tablet by mouth daily. [facility] multivitami n ( VITAMIN) tablet 02-24 00:00: 00 Yes [id number] 1{tbl} Take 1 tablet by mouth daily. [facility] multivitami n ( VITAMIN) tablet 02-24 00:00: 00 Yes [id number] 1{tbl} Take 1 tablet by mouth daily. [facility] multivitami n ( VITAMIN) tablet 02-24 00:00: 00 Yes [id number] 1{tbl} Take 1 tablet by mouth daily. [facility] multivitami n ( VITAMIN) tablet 02-24 00:00: 00 Yes [id number] 1{tbl} Take 1 tablet by mouth daily. [facility] multivitami n ( VITAMIN) tablet 02-24 00:00: 00 Yes [id number] 1{tbl} Take 1 tablet by mouth daily. [facility] multivitami n ( VITAMIN) tablet 02-24 00:00: 00 Yes [id number] 1{tbl} Take 1 tablet by mouth daily. [facility] multivitami n ( VITAMIN) tablet 02-24 00:00: 00 Yes [id number] 1{tbl} Take 1 tablet by mouth daily. [facility] multivitami n ( VITAMIN) tablet 02-24 00:00: 00 Yes [id number] 1{tbl} Take 1 tablet by mouth daily. [facility] multivitami n ( VITAMIN) tablet 02-24 00:00: 00 Yes [id number] 1{tbl} Take 1 tablet by mouth daily. [facility] multivitami n ( VITAMIN) tablet 0 02-24 00:00: 00 Yes [id number] 1{tbl} Take 1 tablet by mouth daily. [facility] multivitami n ( VITAMIN) tablet 02-24 00:00: 00 Yes [id number] 1{tbl} Take 1 tablet by mouth daily. [facility] multivitami n ( VITAMIN) tablet 0 02-24 00:00: 00 06-10 00:00 :00 No [id number] 1{tbl} Take 1 tablet by mouth daily. [facility] cephALEXin 500 mg capsule 2021-0 12-03 00:00: 00 Yes [id number] 500mg Take 1 capsule by mouth 4 (four) times daily. [facility] cephALEXin 500 mg capsule 2021-0 12-03 00:00: 00 Yes [id number] 500mg Take 1 capsule by mouth 4 (four) times daily. [facility] cephALEXin 500 mg capsule 2021-0 12-03 00:00: 00 Yes [id number] 500mg Take 1 capsule by mouth 4 (four) times daily. [facility] cephALEXin 500 mg capsule 2021-0 12-03 00:00: 00 Yes [id number] 500mg Take 1 capsule by mouth 4 (four) times daily. [facility] cephALEXin 500 mg capsule 2021-0 12-03 00:00: 00 Yes [id number] 500mg Take 1 capsule by mouth 4 (four) times daily. [facility] cephALEXin 500 mg capsule 2021-0 12-03 00:00: 00 Yes [id number] 500mg Take 1 capsule by mouth 4 (four) times daily. [facility] cephALEXin 500 mg capsule 2021-0 12-03 00:00: 00 Yes [id number] 500mg Take 1 capsule by mouth 4 (four) times daily. [facility] cephALEXin 500 mg capsule 2021-0 12-03 00:00: 00 Yes [id number] 500mg Take 1 capsule by mouth 4 (four) times daily. [facility] cephALEXin 500 mg capsule 2021-0 12-03 00:00: 00 Yes [id number] 500mg Take 1 capsule by mouth 4 (four) times daily. [facility] cephALEXin 500 mg capsule 2021-0 3-09 00:00: 00 Yes [id number] 500mg Take 1 capsule by mouth 4 (four) times daily. [facility] cephALEXin 500 mg capsule 2021-0 3- 00:00: 00 Yes [id number] 500mg Take 1 capsule by mouth 4 (four) times daily. [facility] cephALEXin 500 mg capsule 2021-0 3- 00:00: 00 Yes [id number] 500mg Take 1 capsule by mouth 4 (four) times daily. [facility] [facility] cephALEXin 500 mg capsule 2021-0 3- 00:00: 00 Yes [id number] 500mg Take 1 capsule by mouth 4 (four) times daily. [facility] cephALEXin 500 mg capsule 2021-0 3- 00:00: 00 Yes [id number] 500mg Take 1 capsule by mouth 4 (four) times daily. [facility] cephALEXin 500 mg capsule 2021-0 3- 00:00: 00 03-24 00:00 :00 No [id number] 500mg Take 1 capsule by mouth 4 (four) times daily. [facility] cephALEXin 500 mg capsule 2021-0 12-03 00:00: 00 03-24 00:00 :00 No [id number] 500mg Take 1 capsule by mouth 4 (four) times daily. [facility] cephALEXin 500 mg capsule 2021-0 3 00:00: 00 03-24 00:00 :00 No [id number] 500mg Take 1 capsule by mouth 4 (four) times daily. [facility] multivitami n ( VITAMIN) tablet 2- 00:00: 00 Yes [id number] 1{tbl} Take 1 tablet by mouth daily. [facility] multivitami n ( VITAMIN) tablet 2- 00:00: 00 Yes [id number] 1{tbl} Take 1 tablet by mouth daily. [facility] multivitami n ( VITAMIN) tablet 2- 00:00: 00 Yes [id number] 1{tbl} Take 1 tablet by mouth daily. [facility] multivitami n ( VITAMIN) tablet 2- 00:00: 00 Yes [id number] 1{tbl} Take 1 tablet by mouth daily. [facility] multivitami n ( VITAMIN) tablet 2 00:00: 00 Yes [id number] 1{tbl} Take 1 tablet by mouth daily. [facility] multivitami n ( VITAMIN) tablet 0 2 00:00: 00 Yes [id number] 1{tbl} Take 1 tablet by mouth daily. [facility] multivitami n ( VITAMIN) tablet 10-28 00:00: 00 Yes [id number] 1{tbl} Take 1 tablet by mouth daily. [facility] multivitami n ( VITAMIN) tablet 10-28 00:00: 00 Yes [id number] 1{tbl} Take 1 tablet by mouth daily. [facility] multivitami n ( VITAMIN) tablet 10-28 00:00: 00 Yes [id number] 1{tbl} Take 1 tablet by mouth daily. [facility] multivitami n ( VITAMIN) tablet 10-28 00:00: 00 Yes [id number] 1{tbl} Take 1 tablet by mouth daily. [facility] multivitami n ( VITAMIN) tablet 2 00:00: 00 Yes [id number] 1{tbl} Take 1 tablet by mouth daily. [facility] multivitami n ( VITAMIN) tablet 0 2 00:00: 00 Yes [id number] 1{tbl} Take 1 tablet by mouth daily. [facility] multivitami n ( VITAMIN) tablet 0 2 00:00: 00 Yes [id number] 1{tbl} Take 1 tablet by mouth daily. [facility] multivitami n ( VITAMIN) tablet 0 2 00:00: 00 02-24 00:00 :00 No [id number] 1{tbl} Take 1 tablet by mouth daily. [facility] multivitami n ( VITAMIN) tablet 2- 00:00: 00 02-24 00:00 :00 No [id number] 1{tbl} Take 1 tablet by mouth daily. [facility] multivitami n ( VITAMIN) tablet 2- 00:00: 00 02-24 00:00 :00 No [id number] 1{tbl} Take 1 tablet by mouth daily. [facility] Vital Signs Vital Name Observation Time Observation Value Comments S johanny Systolic blood pressure 2022-06-10 14:11:00 103 mm[Hg] [facility] Diastolic blood pressure 2022-06-10 14:11:00 62 mm[Hg] [facility] Heart rate 2022-06-10 14:11:00 102 /min [facility] Body temperature 2022-06-10 14:11:00 36.83 Becky [facility] Respiratory rate 2022-06-10 14:11:00 18 /min [facility] Oxygen saturation in Arterial blood by Pulse oximetry 2022-06-10 14:11:00 100 /min [facility] Body height 2022-06-08 17:13:00 157.5 cm [facility] Body weight 2022-06-08 17:13:00 88.905 kg [facility] BMI 2022-06-08 17:13:00 35.85 kg/m2 [facility] Systolic blood pressure 2022-06-02 18:33:00 112 mm[Hg] [facility] Diastolic blood pressure 2022-06-02 18:33:00 73 mm[Hg] [facility] Heart rate 2022-06-02 18:33:00 79 /min [facility] Body temperature 2022-06-02 18:33:00 36.56 Becky [facility] Respiratory rate 2022-06-02 18:33:00 18 /min [facility] Body height 2022-06-02 18:33:00 157.5 cm [facility] Body weight 2022-06-02 18:33:00 88.27 kg [facility] BMI 2022-06-02 18:33:00 35.59 kg/m2 [facility] Systolic blood pressure 2022-05-26 18:08:00 113 mm[Hg] [facility] Diastolic blood pressure 2022-05-26 18:08:00 75 mm[Hg] [facility] Heart rate 2022-05-26 18:08:00 89 /min [facility] Body temperature 2022-05-26 18:08:00 37 Becky [facility] Respiratory rate 2022-05-26 18:08:00 18 /min [facility] Body height 2022-05-26 18:08:00 157.5 cm [facility] Body weight 2022-05-26 18:08:00 87.454 kg [facility] BMI 2022-05-26 18:08:00 35.26 kg/m2 [facility] Systolic blood pressure 2022-05-19 20:42:00 107 mm[Hg] [facility] Diastolic blood pressure 2022-05-19 20:42:00 70 mm[Hg] [facility] Heart rate 2022-05-19 20:42:00 88 /min [facility] Body temperature 2022-05-19 20:42:00 36.72 Becky [facility] Respiratory rate 2022-05-19 20:42:00 18 /min [facility] Body height 2022-05-19 20:42:00 157.5 cm [facility] Body weight 2022-05-19 20:42:00 87.363 kg [facility] BMI 2022-05-19 20:42:00 35.23 kg/m2 [facility] Systolic blood pressure 2022-05-05 20:01:00 94 mm[Hg] [facility] Diastolic blood pressure 2022-05-05 20:01:00 65 mm[Hg] [facility] Heart rate 2022-05-05 20:01:00 96 /min [facility] Body temperature 2022-05-05 20:01:00 36.67 Becky [facility] Respiratory rate 2022-05-05 20:01:00 18 /min [facility] Body height 2022-05-05 20:01:00 157.5 cm [facility] Body weight 2022-05-05 20:01:00 86.002 kg [facility] BMI 2022-05-05 20:01:00 34.68 kg/m2 [facility] Systolic blood pressure 2022-04-22 14:52:00 114 mm[Hg] [facility] Diastolic blood pressure 2022-04-22 14:52:00 76 mm[Hg] [facility] Heart rate 2022-04-22 14:52:00 103 /min [facility] Body temperature 2022-04-22 14:52:00 36.39 Becky [facility] Respiratory rate 2022-04-22 14:52:00 18 /min [facility] Body height 2022-04-22 14:52:00 157.5 cm [facility] Body weight 2022-04-22 14:52:00 85.276 kg [facility] BMI 2022-04-22 14:52:00 34.39 kg/m2 [facility] Heart rate 2022-04-14 04:30:00 94 /min [facility] Oxygen saturation in Arterial blood by Pulse oximetry 2022-04-14 04:30:00 99 /min [facility] Systolic blood pressure 2022-04-14 02:15:00 130 mm[Hg] [facility] Diastolic blood pressure 2022-04-14 02:15:00 66 mm[Hg] [facility] Body temperature 2022-04-14 02:15:00 36.72 Becky [facility] Respiratory rate 2022-04-14 02:15:00 18 /min [facility] Body height 2022-04-14 02:15:00 157.5 cm [facility] Body weight 2022-04-14 02:15:00 84.913 kg [facility] BMI 2022-04-14 02:15:00 34.24 kg/m2 [facility] Systolic blood pressure 2022-04-07 15:08:00 116 mm[Hg] [facility] Diastolic blood pressure 2022-04-07 15:08:00 65 mm[Hg] [facility] Heart rate 2022-04-07 15:08:00 105 /min [facility] Body temperature 2022-04-07 15:08:00 36.67 Becky [facility] Respiratory rate 2022-04-07 15:08:00 18 /min [facility] Body height 2022-04-07 15:08:00 157.5 cm [facility] Body weight 2022-04-07 15:08:00 83.915 kg [facility] BMI 2022-04-07 15:08:00 33.84 kg/m2 [facility] Systolic blood pressure 2022-03-24 19:25:00 100 mm[Hg] [facility] Diastolic blood pressure 2022-03-24 19:25:00 64 mm[Hg] [facility] Heart rate 2022-03-24 19:25:00 85 /min [facility] Body temperature 2022-03-24 19:25:00 36.89 Becky [facility] Respiratory rate 2022-03-24 19:25:00 18 /min [facility] Body height 2022-03-24 19:25:00 157.5 cm [facility] Body weight 2022-03-24 19:25:00 83.462 kg [facility] BMI 2022-03-24 19:25:00 33.65 kg/m2 [facility] Systolic blood pressure 2022-02-24 20:51:00 110 mm[Hg] [facility] Diastolic blood pressure 2022-02-24 20:51:00 72 mm[Hg] [facility] Heart rate 2022-02-24 20:51:00 93 /min [facility] Body temperature 2022-02-24 20:51:00 36.67 Becky [facility] Respiratory rate 2022-02-24 20:51:00 19 /min [facility] Body height 2022-02-24 20:51:00 157.5 cm [facility] Body weight 2022-02-24 20:51:00 82.373 kg [facility] BMI 2022-02-24 20:51:00 33.22 kg/m2 [facility] Systolic blood pressure 2022-01-26 21:11:00 100 mm[Hg] [facility] Diastolic blood pressure 2022-01-26 21:11:00 64 mm[Hg] [facility] Heart rate 2022-01-26 21:11:00 72 /min [facility] Body temperature 2022-01-26 21:11:00 36.83 Becky [facility] Respiratory rate 2022-01-26 21:11:00 18 /min [facility] Body height 2022-01-26 21:11:00 157.5 cm [facility] Body weight 2022-01-26 21:11:00 80.287 kg [facility] BMI 2022-01-26 21:11:00 32.37 kg/m2 [facility] Systolic blood pressure 2021-12-29 18:35:00 104 mm[Hg] [facility] Diastolic blood pressure 2021-12-29 18:35:00 68 mm[Hg] [facility] Heart rate 2021-12-29 18:35:00 90 /min [facility] Body temperature 2021-12-29 18:35:00 36.72 Becky [facility] Respiratory rate 2021-12-29 18:35:00 18 /min [facility] Body height 2021-12-29 18:35:00 157.5 cm [facility] Body weight 2021-12-29 18:35:00 78.472 kg [facility] BMI 2021-12-29 18:35:00 31.64 kg/m2 [facility] Procedures Procedure Date / Time Performed Performing Clinician Source REFERRAL- REQUEST/RESPONSE 2023-03-12 05:01:00 Doctor Unassigned, [place] [facility] CBC WITH DIFF 2022-06-10 08:47:00 Sharonda María Jeremie [facility] CENTRAL NEURAXIAL BLOCK 2022-06-09 03:34:38 Greg Malik [facility] CBC WITH DIFF 2022-06-08 17:57:00 Sharonda Maríajames Chao [facility] HEPATITIS B SURFACE ANTIGEN 2022-06-08 17:57:00 Sharonda María [facility] ADC OR JORDON ONLY - RPR 2022-06-08 17:57:00 Sharonda María [facility] HIV 1/2 AG-AB WITH REFLEX 2022-06-08 17:57:00 Sharonda María [facility] HB ABO GROUPING 2022-06-08 17:55:00 Sharonda María [facility] RHO (D) IMMUNE GLOBULIN 2022-06-08 17:55:00 Sharonda María [facility] CONSENT/REFUSAL FOR DIAGNOSIS AND TREATMENT 2022-06-02 19:29:02 Doctor Unassigned, [place] [facility] ASSIGNMENT OF BENEFITS 2022-06-02 19:28:41 Docto r Unassigned, [place] [facility] POCT URINALYSIS W/O SPECIFIC GRAVITY 2022-06-02 18:45:00 Sharodna María [facility] POCT URINALYSIS W/O SPECIFIC GRAVITY 2022-05-26 18:11:00 Leatha Jacques [facility] >14 WEEKS US LIMITED 2022-05-19 22:34:02 Sharonda María [facility] DSU PRE-OP 2022-05-19 05:01:00 Doctor Unass igned, [place] [facility] POCT URINALYSIS W/O SPECIFIC GRAVITY 2022-05-19 00:00:00 Sharonda María [facility] POCT URINALYSIS W/O SPECIFIC GRAVITY 2022-05-05 00:00:00 María Mcdonough [facility] POCT URINALYSIS W/O SPECIFIC GRAVITY 2022-04-22 14:54:00 Leatha Jacques [facility] URINALYSIS 2022-04-14 03:38:00 María Mcdonough [facility] ADC CLC OR LCC ONLY - WET PREP 2022-04-14 03:05:00 María Mcdonough [facility] CONSENT/REFUSAL FOR DIAGNOSIS AND TREATMENT 2022-04-14 01:55:55 Doctor Unassigned, [place] [facility] TDAP VACCINE, >11 YRS, IM 2022-04-07 15:15:14 Leatha Jacques [facility] POCT URINALYSIS W/O SPECIFIC GRAVITY 2022-04-07 15:09:00 Leatha Jacques [facility] POCT URINALYSIS W/O SPECIFIC GRAVITY 2022-03-24 00:00:00 María Mcdonough [facility] POCT URINALYSIS W/O SPECIFIC GRAVITY 2022-02-24 20:51:00 Leatha Jacques [facility] MEDICAL RELEASE/CLEARANCE FORMS 2022-02-24 05:01:00 Doctor Unassigned, [place] [facility] NOTICE OF RESEARCH PARTICIPATION 2022-01-26 05:01:00 Doctor Unassigned, [place] [facility] POCT URINALYSIS W/O SPECIFIC GRAVITY 2022-01-26 00:00:00 María Mcdonough [facility] POCT URINALYSIS W/O SPECIFIC GRAVITY 2021-12-29 00:00:00 Leatha Jacques [facility] Encounters Start Date/Time End Date/Time Encounter Type Admission Type Attending Clinicians Care Facility Care Department Encounter ID Source 2022-04-13 23:59:54 Outpatient P [facility] [place] [id number] [facility] 2023-07-19 14:30:00 2023-07-19 14:30:00 Outpatient R SANDRA LEYVA MARISOL [facility] [id number] [facility] 2023-03-12 00:00:00 2023-03-12 00:00:00 Orders Only Doctor Unassigned, [place] [facility] 1.2.840.114 350.1.13.10 4.2.7.2.686 [id number] [facility] 2022-11-04 13:47:46 2022-11-04 13:47:46 Outpatient [facility] [id number] Martell Gordon 2022-07-01 16:30:00 2022-07-01 16:30:00 Outpatient Sondra ALVAREZ [facility] [id number] [facility] 2022-06-30 16:30:00 2022-06-30 16:30:00 Outpatient R ALVAREZ [facility] [id number] [facility] 2022-06-29 11:00:00 2022-06-29 11:00:00 Outpatient Sondra ALVAREZ [facility] [id number] [facility] 2022-06-08 11:48:00 2022-06-10 15:15:00 Inpatient P MARÍA MCDONOUGH [facility] [place] [id number] [facility] 2022-06-08 11:48:00 2022-06-10 15:15:00 Hospital Encounter Leandro Mcdonoughen Jeremie [facility] 1.2840.114 350.1.13.10 4.2.7.2.686 [id number] [facility] 2022-06-08 22:12:00 2022-06-09 07:06:00 Anesthesia Event Greg Malik [facility] 1.2.840.114 350.1.13.10 4.2.7.2.686 [id number] [facility] 2022-06-08 16:13:57 2022-06-08 16:13:57 Anesthesia Event Sondra Truong [facility] 1.2.840.114 350.1.13.10 4.2.7.2.686 [id number] [facility] 2022-06-06 09:00:00 2022-06-06 09:15:00 Histotechnician Visit Pob, Adc Lab Main María Mcdonough [facility] 1.2.840.114 350.1.13.10 4.2.7.2.686 [id number] [facility] 2022-06-06 09:00:00 2022-06-06 09:00:00 [facility] [id number] 2022-06-06 09:00:00 2022-06-06 09:00:00 Outpatient [facility] [id number] [facility] 2022-06-02 13:30:00 2022-06-02 14:15:11 [facility] [id number] [facility] 2022-06-02 13:30:00 2022-06-02 14:15:11 Routine Visit María Mcdonough [facility] 1.2.840.114 350.1.13.10 4.2.7.2.686 [id number] [facility] 2022-05-26 13:30:00 2022-05-26 13:45:00 Histotechnician Visit 2, Adc Lab [facility] 1.2.840.114 350.1.13.10 4.2.7.2.686 [id number] [facility] 2022-05-26 13:00:00 2022-05-26 13:21:12 Outpatient R ALVAREZ [facility] [id number] [facility] 2022-05-26 13:00:00 2022-05-26 13:21:12 Routine Visit Leatha Jacques [facility] 1.2.840.114 350.1.13.10 4.2.7.2.686 [id number] [facility] 2022-05-20 11:00:00 2022-05-20 11:00:00 Outpatient R [facility] [id number] [facility] 2022-05-19 15:15:00 2022-05-19 16:11:43 Outpatient R MARÍA MCDONOUGH [facility] [id number] [facility] 2022-05-19 15:15:00 2022-05-19 16:11:43 Routine Visit María Mcdonough [facility] 1.840.114 350.1.13.10 4.2.7.2.686 [id number] [facility] 2022-05-19 00:00:00 2022-05-19 00:00:00 Orders Only Doctor Unassigned, [place] [facility] 1.84.114 350.1.13.10 4.2.7.2.686 [id number] [facility] 2022-05-05 14:15:00 2022-05-05 15:29:10 Outpatient R MARÍA MCDONOUGH [facility] [id number] [facility] 2022-05-05 14:15:00 2022-05-05 15:29:10 Routine Visit [facility] 1..840.114 350.1.13.10 4.2.7.2.686 [id number] 134 [id number] [facility] 2022-04-22 09:30:00 2022-04-22 10:07:18 Outpatient R MARÍA MCDONOUGH [facility] [id number] [facility] 2022-04-22 09:30:00 2022-04-22 10:07:18 Routine Visit Leatha Jacques María Mcdonough [facility] 1.2840.114 350.1.13.10 4.2.7.2.686 [id number] [facility] 2022-04-16 00:00:00 2022-04-16 00:00:00 Refill Katherine Lashaun Meredith [facility] 1.2840.114 350.1.13.10 4.2.7.2.686 [id number] [facility] 2022-04-13 21:08:00 2022-04-13 23:59:00 Outpatient P MARÍA MCDONOUGH [facility] [place] [id number] [facility] 2022-04-13 21:08:00 2022-04-13 23:59:00 Hospital Encounter María Mcdonough [facility] 1.284.114 350.1.13.10 4.2.7.2.686 [id number] [facility] 2022-04-13 00:00:00 2022-04-13 00:00:00 Orders Only Doctor Unassigned, [place] [facility] 1.284.114 350.1.13.10 4.2.7.2.686 [id number] [facility] 2022-04-07 09:45:00 2022-04-07 10:39:55 Outpatient R ALVAREZ LEATHA [facility] [id number] [facility] 2022-04-07 09:45:00 2022-04-07 10:39:55 Routine Visit Leatha Jacques [facility] 1.2.840.114 350.1.13.10 4.2.7.2.686 [id number] [facility] 2022-03-26 00:00:00 2022-03-26 00:00:00 Telephone María Mcdonough [facility] 1.2.840.114 350.1.13.10 4.2.7.2.686 [id number] [facility] 2022-03-25 00:00:00 2022-03-25 00:00:00 Case Management Addelia Lashaun Harper [facility] 1.2840.114 350.1.13.10 4.2.7.2.686 [id number] [facility] 2022-03-24 14:00:00 2022-03-24 14:47:16 Outpatient R MARÍA MCDONOUGH [facility] [id number] [facility] 2022-03-24 14:00:00 2022-03-24 14:47:16 Routine Visit María Mcdonough [facility] 1.2840.114 350.1.13.10 4.2.7.2.686 [id number] [facility] 2022-03-24 13:00:00 2022-03-24 13:15:00 Histotechnician Visit 2, Adc Lab Alvarez Leatha [facility] 1.20.114 350.1.13.10 4.2.7.2.686 [id number] [facility] 2022-02-24 15:30:00 2022-02-24 15:45:00 Routine Visit Alvarez Leatha [facility] 1.2840.114 350.1.13.10 4.2.7.2.686 [id number] [facility] 2022-02-24 15:30:00 2022-02-24 15:30:00 Outpatient R ALVAREZ [facility] [id number] [facility] 2022-02-24 00:00:00 2022-02-24 00:00:00 Orders Only Doctor Unassigned, [place] [facility] 1.2840.114 350.1.13.10 4.2.7.2.686 [id number] [facility] 2022-02-17 00:00:00 2022-02-17 00:00:00 Telephone [facility]ía [facility] 1.2840.114 350.1.13.10 4.2.7.2.686 [id number] [facility] 2022-01-26 15:45:00 2022-01-26 16:33:50 Routine Visit María Mcdonough [facility] 1.2840.114 350.1.13.10 4.2.7.2.686 [id number] [facility] 2022-01-26 08:00:00 2022-01-26 09:24:54 Outpatient P JAMISON KIM [facility] [id number] [facility] 2022-01-26 08:00:00 2022-01-26 09:00:00 Histotechnician Visit 1, [facility] Room Jamison Kim [facility] DRY END OPERATOR [facility] 1.2840.114 350.1.13.10 4.2.7.2.686 [id number] [facility] 2022-01-26 00:00:00 2022-01-26 00:00:00 Orders Only Doctor Unassigned, [place] [facility] 1.20.114 350.1.13.10 4.2.7.2.686 [id number] [facility] 2022-01-19 00:00:00 2022-01-19 00:00:00 Telephone María Mcdonough [facility] 1.2840.114 350.1.13.10 4.2.7.2.686 [id number] [facility] 2021-12-31 00:00:00 2021-12-31 00:00:00 Telephone María Mcdonough [facility] 1.2.840.114 350.1.13.10 4.2.7.2.686 [id number] [facility] 2021-12-31 00:00:00 2021-12-31 00:00:00 Patient Secure Msg María Mcdonough [facility] 1.2.840.114 350.1.13.10 4.2.7.2.686 [id number] [facility] 2021-12-30 00:00:00 2021-12-30 00:00:00 Refill Virginia Medrano [facility] DRY END OPERATOR [facility] 1.2.840.114 350.1.13.10 4.2.7.2.686 [id number] [facility] 2021-12-29 14:15:00 2021-12-29 14:30:00 Histotechnician Visit 2, Adc Lab Leatha Jacques [facility] 1.2840.114 350.1.13.10 4.2.7.2.686 [id number] [facility] 2021-12-29 13:15:00 2021-12-29 13:57:13 Outpatient R ALVAREZ [facility] [id number] [facility] 2021-12-29 13:15:00 2021-12-29 13:57:13 Routine Visit Alvarez Leatha [facility] 1.2.840.114 350.1.13.10 4.2.7.2.686 [id number] [facility] 2021-12-26 00:00:00 2021-12-26 00:00:00 Patient Secure Msg Jessica Laurent [facility] 1.2840.114 350.1.13.10 4.2.7.2.686 [id number] 134 [id number] [facility] 2021-12-04 00:00:00 2021-12-04 00:00:00 Telephone María Mcdonough [facility] 1..840.114 350.1.13.10 4.2.7.2.686 [id number] [facility] 2021-12-03 11:15:00 2021-12-03 16:26:39 Outpatient P CATARINO DAY [facility] [id number] [facility] 2021-12-03 12:00:00 2021-12-03 12:15:00 Histotechnician Visit Lab, Vianney Mclean [facility] DRY END OPERATOR [facility] MATERNAL & CHILD [facility] 1..840.114 350.1.13.10 4.2.7.2.686 [id number] [facility] 2021-12-03 11:15:00 2021-12-03 12:00:00 [facility] DRY END OPERATOR [facility] MATERNAL & CHILD [facility] 1..840.114 350.1.13.10 4.2.7.2.686 [id number] [facility] 2021-12-03 11:15:00 2021-12-03 11:15:00 Outpatient P BARB [facility] [id number] [facility] 2021-12-03 00:00:00 2021-12-03 00:00:00 Abstract Virginia Medrano [facility] DRY END OPERATOR [facility] MATERNAL & CHILD [facility] 1..840.114 350.1.13.10 4.2.7.2.686 [id number] [facility] 2021-12-03 00:00:00 2021-12-03 00:00:00 Case Management McdonoughLeandrojames Chao [facility] 1..840.114 350.1.13.10 4.2.7.2.686 [id number] 134 [id number] [facility] 2021-12-03 00:00:00 2021-12-03 00:00:00 Patient Secure Msg [facility]ía [facility] 1..840.114 350.1.13.10 4.2.7.2.686 [id number] [facility] 2021-12-01 10:00:00 2021-12-01 12:03:11 Outpatient R MARÍA MCDONOUGH [facility] [id number] [facility] 2021-12-01 10:00:00 2021-12-01 12:03:11 Initial Visit María Mcdonough [facility] 1..840.114 350.1.13.10 4.2.7.2.686 [id number] 134 [id number] [facility] 2021-12-01 10:00:00 2021-12-01 12:03:11 Outpatient R MARÍA MCDONOUGH [facility] [id number] [facility] 2021-11-25 15:30:00 2021-11-25 15:30:00 Outpatient R VIRGINIA MEDRANO [facility] [id number] [facility] 2021-11-25 15:30:00 2021-11-25 15:30:00 Outpatient R VIRGINIA MEDRANO [facility] [id number] [facility] 2021-11-25 15:30:00 2021-11-25 15:30:00 Outpatient R VIRGINIA MEDRANO [facility] [id number] [facility] 2021-11-24 00:00:00 2021-11-24 00:00:00 Abstract Virginia Medrano [facility] DRY END OPERATOR [facility] MATERNAL & CHILD [facility] 1..840.114 350.1.13.10 4.2.7.2.686 [id number] [facility] 2021-11-21 09:30:00 2021-11-21 09:30:00 Outpatient P [facility] [id number] [facility] 2021-11-21 08:00:00 2021-11-21 08:58:47 Outpatient P VANESSA MADDEN SANGEETA [facility] [id number] [facility] 2021-11-21 08:00:00 2021-11-21 08:45:00 Histotechnician Visit 1, [facility] Room Vanessa Madden [facility] DRY END OPERATOR [facility] MATERNAL & [facility]ILD [facility] 1..840.114 350.1.13.10 4.2.7.2.686 [id number] [facility] 2021-11-21 08:00:00 2021-11-21 08:00:00 Outpatient P [facility] [id number] [facility] 2021-11-21 08:00:00 2021-11-21 08:00:00 Outpatient P VANESSA MADDEN SANGEETA [facility] [id number] [facility] 2021-11-11 00:00:00 2021-11-11 00:00:00 Telephone Virginia Medrano [facility] DRY END OPERATOR [facility] & CHILD [facility] ..840.114 350.1.13.10 4.2.7.2.686 [id number] [facility] 2021-10-30 00:00:00 2021-10-30 00:00:00 Telephone Virginia Medrano [facility] DRY END OPERATOR [facility] & CHILD [facility] ..840.114 350.1.13.10 4.2.7.2.686 [id number] [facility] 2021-10-28 14:30:00 2021-10-28 16:21:52 Outpatient R VIRGINIA MEDRANO [facility] [id number] [facility] 2021-10-28 14:30:00 2021-10-28 16:21:52 Outpatient R VIRGINIA MEDRANO [facility] [id number] [facility] 2021-10-28 14:30:00 2021-10-28 16:21:52 Outpatient R VIRGINIA MEDRANO [facility] [id number] [facility] 2021-10-28 14:30:00 2021-10-28 16:21:52 Outpatient R VIRGINIA MEDRANO [facility] [id number] [facility] 2021-10-28 14:30:00 2021-10-28 15:00:00 Initial Visit Virginia Medrano [facility] DRY END OPERATOR [facility]ER[facility] 1.2.840.114 350.1.13.10 4.2.7.2.686 [id number] [facility] Results Test Description Test Time Test Comments Results Result Co mments Source [facility] JORDON SNYDER - [id number] 09:50:19* Test Item Value Reference Range Interpretation Comme [facility] RPR (Qualitative) (test code = 78002-4) Nonreactive Nonreactive Lab Interpretation (test cod e = 73656-9) Normal [facility] AG-AB WITH [id number] 00:01:59* Test Item Value Reference Range Interpretation Comme nts HIV Semi-quantitative (test code = 67534-0) Negative Negative PRITI (test code = PRITI) Non-reactive for HIV-1 antigen and HIV-1/HIV-2 antibodies. ?No laboratory evidence of HIV infection. ?Repeat in 2-4 weeks if acute HIV infection is suspected. [facility] SURFACE [id number] 23:24:29 * Test Item Value Reference Range Interpretation Comme nts HBsAg Semi-Quantitative (jeff t code = 5195-3) Negative Negative [facility] and Screen - ONCE [id number] 18:55:23* Test Item Value Reference Range Interpretation Comme nts ABO & RH (test code = 20) A Positive Performed at [facility] Laboratory [facility] Blood [address] [place], [place] [id number] Free: [phone] No. [id number] IAT (test code = 1185) Negative Performed at [facility] Laboratory [facility] Blood [address] [place], [place] [id number] Free: [phone] No. [id number] [facility] WITH [id number] 18:44:12* Test Item Value Reference Range Interpretation Comme nts WBC (test code = 6690-2) See_Comment [Automated messa ge] The system which generated this result transmitted reference range: 4.30 - 11.10 10*3/?L. The reference range was not used to interpret this result as normal/abnormal. RBC (test code = 789-8) See_Comment L [Automated messa ge] The system which generated this result transmitted reference range: 3.93 - 5.25 10*6/?L. The reference range was not used to interpret this result as normal/abnormal. HGB (test code = 718-7) 10.8 g/dL 11.6-15 L HCT (test code = 4544-3) 32.3 % 35.7-45.2 L MCV (test code = 787-2) 85.9 fL 80.6-95.5 MCH (test code = 785-6) 28.7 pg 25.9-32.8 MCHC (test code = 786-4) 33.4 g/dL 31.6-35.1 RDW-SD (test code = 34254-9) 42.5 fL 39-49.9 RDW-CV (test code = 788-0) 13.7 % 12-15.5 PLT (test code = 777-3) See_Comment [Automated messa ge] The system which generated this result transmitted reference range: 166 - 358 10*3/?L. The reference range was not used to interpret this result as normal/abnormal. MPV (test code = 77425-4) 11.4 fL 9.5-12.9 NRBC/100 WBC (test code = 9904808443) See_Comment [Automated me ssage] The system which generated this result transmitted reference range: 0.0 - 10.0 /100 WBCs. The reference range was not used to interpret this result as normal/abnormal. NRBC x10^3 (test code = 1810170092) See_Comment [Automated messa ge] The system which generated this result transmitted reference range: 10*3/?L. The reference range was not used to interpret this result as normal/abnormal. GRAN MAT (NEUT) % (test code = 770-8) 77.7 % IMM GRAN % (test code = 8294731465) 0.80 % LYMPH % (test code = 736-9) 13.4 % MONO % (test code = 5905-5) 7.3 % EOS % (test code = 713-8) 0.5 % BASO % (test code = 706-2) 0.3 % GRAN MAT x10^3(ANC) (test code = 1003189947) 6.15 10*3/uL 1.88-7.09 IMM GRAN x10^3 (test code = 0672754122) 0.06 10*3/uL 0-0.06 LYMPH x10^3 (test code = 731-0) 1.06 10*3/uL 1.32-3.29 L MONO x10^3 (test code = 742-7) 0.58 10*3/uL 0.33-0.92 EOS x10^3 (test code = 711-2) 0.04 10*3/uL 0.03-0.39 BASO x10^3 (test code = 704-7) 0.01-0.07 Lab Interpretation (test code = 03787-4) Abnormal [facility] URINALYSIS W/O SPECIFIC [id number] 18:46:00* Test Item Value Reference Range Interpretation Comme nts POCT PH U (test code = 3254) n/a 5-8 POCT U LEUK EST (test code = 3263) n/a Negative - Negative POCT U NIT (test code = 3262) n/a Negative - Negati ve POCT U PROT (test code = 3259) trace Negative - Negat jocelyn POCT U GLU (test code = 3256) negative Negative - Negati ve POCT U KETONE (test code = 3258) n/a Negative - Neg ative POCT U BLD (test code = 3257) n/a Negative - Negati ve [facility] URINALYSIS W/O SPECIFIC [id number] 18:11:00* Test Item Value Reference Range Interpretation Comme nts POCT PH U (test code = 3254) N/A 5-8 POCT U LEUK EST (test code = 3263) N/A Negative - N egative POCT U NIT (test code = 3262) N/A Negative - Negati ve POCT U PROT (test code = 3259) NEG Negative - Negat jocelyn POCT U GLU (test code = 3256) NEG Negative - Negati ve POCT U KETONE (test code = 3258) N/A Negative - Neg ative POCT U BLD (test code = 3257) N/A Negative - Negati ve [facility] URINALYSIS W/O SPECIFIC [id number] 20:39:00* Test Item Value Reference Range Interpretation Comme nts POCT PH U (test code = 3254) n/a 5-8 POCT U LEUK EST (test code = 3263) n/a Negative - Negative POCT U NIT (test code = 3262) n/a Negative - Negati ve POCT U PROT (test code = 3259) negative Negative - Negat jocelyn POCT U GLU (test code = 3256) negative Negative - Negati ve POCT U KETONE (test code = 3258) n/a Negative - Neg ative POCT U BLD (test code = 3257) n/a Negative - Negati ve [facility] URINALYSIS W/O SPECIFIC [id number] 19:58:00* Test Item Value Reference Range Interpretation Comme nts POCT PH U (test code = 3254) n/a 5-8 POCT U LEUK EST (test code = 3263) n/a Negative - Negative POCT U NIT (test code = 3262) n/a Negative - Negati ve POCT U PROT (test code = 3259) negative Negative - Negat jocelyn POCT U GLU (test code = 3256) negative Negative - Negati ve POCT U KETONE (test code = 3258) n/a Negative - Neg ative POCT U BLD (test code = 3257) n/a Negative - Negati ve [facility] URINALYSIS W/O SPECIFIC [id number] 14:55:00* Test Item Value Reference Range Interpretation Comme nts POCT PH U (test code = 3254) n/a 5-8 POCT U LEUK EST (test code = 3263) n/a Negative - Negative POCT U NIT (test code = 3262) n/a Negative - Negati ve POCT U PROT (test code = 3259) negative Negative - Negat jocelyn POCT U GLU (test code = 3256) negative Negative - Negati ve POCT U KETONE (test code = 3258) n/a Negative - Neg ative POCT U BLD (test code = 3257) n/a Negative - Negati ve [facility] URINALYSIS W/O SPECIFIC [id number] 15:10:00* Test Item Value Reference Range Interpretation Comme nts POCT PH U (test code = 3254) N/A 5-8 POCT U LEUK EST (test code = 3263) N/A Negative - N egative POCT U NIT (test code = 3262) N/A Negative - Negati ve POCT U PROT (test code = 3259) NEG Negative - Negat jocelyn POCT U GLU (test code = 3256) NEG Negative - Negati ve POCT U KETONE (test code = 3258) N/A Negative - Neg ative POCT U BLD (test code = 3257) N/A Negative - Negati ve [facility] URINALYSIS W/O SPECIFIC [id number] 19:18:00* Test Item Value Reference Range Interpretation Comme nts POCT PH U (test code = 3254) n/a 5-8 POCT U LEUK EST (test code = 3263) n/a Negative - Negative POCT U NIT (test code = 3262) n/a Negative - Negati ve POCT U PROT (test code = 3259) negative Negative - Negat jocelyn POCT U GLU (test code = 3256) negative Negative - Negati ve POCT U KETONE (test code = 3258) n/a Negative - Neg ative POCT U BLD (test code = 3257) n/a Negative - Negati ve [facility] URINALYSIS W/O SPECIFIC [id number] 20:51:00* Test Item Value Reference Range Interpretation Comme nts POCT PH U (test code = 3254) n/a 5-8 POCT U LEUK EST (test code = 3263) n/a Negative - Negative POCT U NIT (test code = 3262) n/a Negative - Negati ve POCT U PROT (test code = 3259) negative Negative - Negat jocelyn POCT U GLU (test code = 3256) negative Negative - Negati ve POCT U KETONE (test code = 3258) n/a Negative - Neg ative POCT U BLD (test code = 3257) n/a Negative - Negati ve [facility] URINALYSIS W/O SPECIFIC [id number] 21:09:00* Test Item Value Reference Range Interpretation Comme nts POCT PH U (test code = 3254) N/A 5-8 POCT U LEUK EST (test code = 3263) N/A Negative - Negative POCT U NIT (test code = 3262) N/A Negative - Negati ve POCT U PROT (test code = 3259) Negative Negative - Negat jocelyn POCT U GLU (test code = 3256) Negative Negative - Negati ve POCT U KETONE (test code = 3258) N/A Negative - Neg ative POCT U BLD (test code = 3257) N/A Negative - Negati ve [facility] URINALYSIS W/O SPECIFIC [id number] 19:04:00* Test Item Value Reference Range Interpretation Comme nts POCT PH U (test code = 3254) n/a 5-8 POCT U LEUK EST (test code = 3263) n/a Negative - N egative POCT U NIT (test code = 3262) n/a Negative - Negati ve POCT U PROT (test code = 3259) neg Negative - Negat jocelyn POCT U GLU (test code = 3256) neg Negative - Negati ve POCT U KETONE (test code = 3258) n/a Negative - Neg ative POCT U BLD (test code = 3257) n/a Negative - Negati ve [facility]
--- NOTE | 2023-12-16 06:56 | RAD REPORT ---
EXAM DESCRIPTION: CT - Head Brain Wo Cont - 12/16/2023 6:48 am CLINICAL HISTORY: new onset headache COMPARISON: No comparisons TECHNIQUE: All CT scans are performed using dose optimization technique as appropriate and may inclu de automated exposure control or mA/KV adjustment according to patient size. FINDINGS: No intracranial hemorrhage, hydrocephalus or extra-axial fluid collection.No areas of brai n edema or evidence of midline shift. The paranasal sinuses and mastoids are clear. The calvarium is intact. IMPRESSION: No acute intracranial abnormality.
[2023-12-16 07:00] LABS: Specific Gravity > 1.030 (1.005-1.030)
--- NOTE | 2023-12-16 07:07 | ER ---
Nurse's Notes [facility] Name: Sherrell Campbell Age: 23 yrs Sex: Female : 2000 Arrival Date: 12/16/2023 Time: 05:37 Bed 6 Private MD: Diagnosis: Encounter for test, result positive;Migraine without aura, not intractable Presentation: 12/15 05:50 Chief complaint: Patient states: Bad eye pressure and pain to right side of head. vc1 Coronavirus screen: Vaccine status: Patient reports being unvaccinated. Client denies travel out of the [place] in the last 14 days. At this time, the client does not indicate any symptoms associated with coronavirus-19. Ebola Screen: Patient negative for fever greater than or equal to 101.5 degrees Fahrenheit, and additional compatible Ebola Virus Disease symptoms Patient denies exposure to infectious person. Patient denies travel to an Ebola-affected area in the 21 days before illness onset. No symptoms or risks identified at this time. Mechanism of Injury: No Mechanism of Injury. The patient denies any loss of vision. Initial Sepsis Screen: Does the patient meet any 2 criteria? No. Patient's initial sepsis screen is negative. Does the patient have a suspected source of infection? No. Patient's initial sepsis screen is negative. Risk Assessment: Do you want to hurt yourself or someone else? Patient reports no desire to harm self or others. Onset of symptoms was December 16, 2023 at 01:00. 05:50 Method Of Arrival: Ambulatory vc1 05:50 Acuity: BONILLA 4 vc1 Triage Assessment: 06:13 General: Appears in no apparent distress. comfortable, Behavior is calm, cooperative, vc1 appropriate for age. Pain: Complains of pain in right temporal area, right hoahaoism and right eye Pain does not radiate. Pain currently is 8 out of 10 on a pain scale. at worst was 9 out of 10 on a pain scale. Quality of pain is described as pressure, sharp, Pain began suddenly, 0100 Is continuous, Noted to be grimacing, Also complains of nausea. EENT: Reports eye pressure. Neuro: Level of Consciousness is awake, alert, obeys commands, Oriented to person, place, time, situation, Appropriate for age. Cardiovascular: No deficits noted. Respiratory: Airway is patent Respiratory effort is even, unlabored, Respiratory pattern is regular, symmetrical. GI: Abdomen is round non-distended, Reports nausea, vomiting, vomited times 1. : No deficits noted. No signs and/or symptoms were reported regarding the genitourinary system. Derm: No deficits noted. No signs and/or symptoms reported regarding the dermatologic system. Musculoskeletal: No deficits noted. No signs and/or symptoms reported regarding the musculoskeletal system. 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 - Social history:: Smoking status: Patient denies any tobacco usage or history of. - Family history:: not pertinent. Screenin:50 [facility] ED Fall Risk Assessment (Adult) History of falling in the last 3 months, vc1 including since admission No falls in past 3 months (0 pts) Confusion or Disorientation No (0 pts) Intoxicated or Sedated No (0 pts) Impaired Gait No (0 pts) Mobility Assist Device Used No (0 pt) Altered Elimination No (0 pt) Score/Fall Risk Level 0 - 2 = Low Risk Oriented to surroundings, Maintained a safe environment, Educated pt \T\ family on fall prevention, incl call for assistance when getting out of bed. Abuse screen: Denies threats or abuse. Nutritional screening: No deficits noted. Tuberculosis screening: No symptoms or risk factors identified. Assessment: 06:30 Reassessment: Patient is alert, oriented x 3, equal unlabored respirations, skin as9 warm/dry/pink. patient state headache and eye pain. General: Appears in no apparent distress. comfortable, Behavior is calm, cooperative, appropriate for age. Pain: Complains of pain in right eye and right hoahaoism and right temporal area Pain currently is 9 out of 10 on a pain scale. 06:30 Neuro: Level of Consciousness is awake, alert, obeys commands, Oriented to person, as9 place, time, situation, Appropriate for age. Cardiovascular: Capillary refill < 3 seconds Patient's skin is warm and dry. Respiratory: Airway is patent Respiratory effort is even, unlabored, Respiratory pattern is regular, symmetrical. GI: Abdomen is round non-distended. : No signs and/or symptoms were reported regarding the genitourinary system. EENT: Derm: Skin is intact, Skin is pink, warm \T\ dry. Musculoskeletal: Circulation, motion, and sensation intact. Range of motion: intact in all extremities. 06:55 EENT: Eyes clear. Sclera/Cornea are clear in outer aspect of conjuctiva of right eye as9 and inner aspect of conjuctiva of right eye. Vital Signs: 05:50 BP 118 / 86; Pulse 102; Resp 16; Temp 97.7; Pulse Ox 99% ; Weight 89.81 kg; Height 5 vc1 ft. 3 in. ; Pain 8/10; 06:00 BP 114 / 70; Pulse 85; Resp 20; Temp 97.9; Pulse Ox 98% on R/A; as9 06:30 BP 114 / 77; Pulse 92; Resp 18; Pulse Ox 100% on R/A; as9 07:21 BP 114 / 71; Pulse 82; Resp 20; Temp 98; Pulse Ox 100% on R/A; as9 05:50 Body Mass Index 35.07 (89.81 kg, 160.02 cm) vc1 05:50 Pain Scale: Adult vc1 Visual Acuity: 07:25 Left Eye Visual acuity 20/20, Pupil size 3 mm, ; Right Eye Visual acuity 20/20, Pupil as9 size 3 mm, ; Both Eyes Visual acuity 20/20; With Lenses; ED Course: 05:41 Patient arrived in ED. mr 05:50 Arm band placed on right wrist. vc1 05:55 Ag Muñoz MD is Attending Physician. sp4 06:00 Inserted saline lock: 20 gauge in right antecubital area, using aseptic technique. as9 06:11 Triage completed. vc1 06:13 Patient has correct armband on for positive identification. Bed in low position. Call vc1 light in reach. Adult w/ patient. Pulse ox on. NIBP on. 06:42 Test, Urine Sent. as9 06:50 CT Head Brain wo Cont In Process Unspecified. EDMS 07:21 No provider procedures requiring assistance completed. IV discontinued, intact, as9 bleeding controlled, No redness/swelling at site. Pressure dressing applied. 07:24 Provided Education on: discharge instruction given and explained well to the patient. as9 Administered Medications: 06:39 Drug: metoCLOPramide IVP 10 mg IVP once; over 1 to 2 minutes Route: IVP; Site: right as9 antecubital; 07:26 Follow up: Response: No adverse reaction; Marked relief of symptoms as9 06:39 Drug: diphenhydrAMINE IVP 50 mg IVP once Route: IVP; Site: right antecubital; as9 07:26 Follow up: Response: No adverse reaction; Marked relief of symptoms as9 06:39 Drug: NS 0.9% IV 1000 ml IV at 1 bolus Per protocol; 1000 mL bolus Route: IV; Rate: 1 as9 bolus; Site: right antecubital; 07:26 Follow up: IV Status: Completed infusion; IV Intake: 1000ml as9 07:21 Not Given (not applicable at this timee): [id number] mg IVP once as9 Medication: 06:13 VIS not applicable for this client. vc1 Intake: 07:26 IV: 1000ml; Total: 1000ml. as9 Outcome: 07:06 Discharge ordered by MD. torres 07:24 Discharged to home ambulatory, as9 07:24 Condition: good 07:24 Discharge instructions given to patient, family, Instructed on discharge instructions, follow up and referral plans. Demonstrated understanding of instructions, follow-up care, 07:26 Patient left the ED. as9 Signatures: Dispatcher [employer] EDLA DiorRosalind ellison, Reg Reg Camille Newsome RN RN 1 Ag Muñoz MD MD sp4 Isaak Austin RN RN as9 Corrections: (The following items were deleted from the chart) 06:13 06:11 PMHx: None; vc1 vc1 06:44 06:43 Inserted saline lock: 20 gauge in right antecubital area, using aseptic as9 technique. as9
--- NOTE | 2023-12-16 07:07 | EDPHYS ---
Physician Documentation [facility] Name: Sherrell Campbell Age: 23 yrs Sex: Female : 2000 Arrival Date: 12/16/2023 Time: 05:37 Bed 6 Private MD: ED Physician Ag Muñoz HPI: 12/15 05:55 This 23 yrs old Female presents to ER via Unassigned with complaints of Eye sp4 Pain, Headache. 06:36 22-year-old female presents with acute onset of right-sided headache also pain behind sp4 the right eye. Patient reported associated vomiting . Pain started acutely at 1 AM this morning. . 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 - Social history:: Smoking status: Patient denies any tobacco usage or history of. - Family history:: not pertinent. ROS: 06:36 Constitutional: Negative for fever, chills, and weight loss, positive headache, sp4 positive vomiting 06:36 All other systems are negative, Exam: 06:36 Constitutional: This is a well developed, well nourished patient who is awake, alert, sp4 and in no acute distress. Head/Face: Normocephalic, atraumatic. Eyes: Pupils equal round and reactive to light, extra-ocular motions intact. Lids and lashes normal. Conjunctiva and sclera are not injected. Cornea within normal limits. Periorbital areas with no swelling, redness, or edema. ENT: Nares patent. No nasal discharge, no septal abnormalities noted. Tympanic membranes are normal and external auditory canals are clear. Oropharynx with no redness, swelling, or masses, exudates, or evidence of obstruction, uvula midline. Mucous membranes moist. Neck: Trachea midline, no thyromegaly or masses palpated, and no cervical lymphadenopathy. Supple, full range of motion without nuchal rigidity, or vertebral point tenderness. Chest/axilla: Normal chest wall appearance and motion. Nontender with no deformity. No lesions are appreciated. Cardiovascular: Regular rate and rhythm with a normal S1 and S2. No gallops, murmurs, or rubs. Normal PMI, no JVD. No pulse deficits. Respiratory: Lungs have equal breath sounds bilaterally, clear to auscultation and percussion. No rales, rhonchi or wheezes noted. No increased work of breathing, no retractions or nasal flaring. Abdomen/GI: Soft, with normal bowel sounds. No distension or tympany. No guarding or rebound. No evidence of tenderness throughout. Back: No spinal tenderness. No costovertebral tenderness. Skin: Warm, dry with normal turgor. Normal color with no rashes, no lesions, and no evidence of cellulitis. MS/ Extremity: Pulses equal, no cyanosis. Neurovascular intact. Full, normal range of motion. Neuro: Awake and alert, GCS 15, oriented to person, place, time, and situation. Cranial nerves II-XII grossly intact. Motor strength 5/5 in all extremities. Sensory grossly intact. Psych: Awake, alert, with orientation to person, place and time. Behavior, mood, and affect are within normal limits Vital Signs: 05:50 BP 118 / 86; Pulse 102; Resp 16; Temp 97.7; Pulse Ox 99% ; Weight 89.81 kg; Height 5 vc1 ft. 3 in. ; Pain 8/10; 06:00 BP 114 / 70; Pulse 85; Resp 20; Temp 97.9; Pulse Ox 98% on R/A; as9 06:30 BP 114 / 77; Pulse 92; Resp 18; Pulse Ox 100% on R/A; as9 07:21 BP 114 / 71; Pulse 82; Resp 20; Temp 98; Pulse Ox 100% on R/A; as9 05:50 Body Mass Index 35.07 (89.81 kg, 160.02 cm) vc1 05:50 Pain Scale: Adult vc1 Visual Acuity: 07:25 Left Eye Visual acuity 20/20, Pupil size 3 mm, ; Right Eye Visual acuity 20/20, Pupil as9 size 3 mm, ; Both Eyes Visual acuity 20/20; With Lenses; MDM: 05:57 Patient medically screened. sp4 06:37 Differential diagnosis: Acute iritis of Ultraviolet keratitis in. Data reviewed: vital sp4 signs, nurses notes, lab test result(s), UPT: negative radiologic studies, CT scan. Consideration of Admission/Observation Escalation of care including admission/observation considered. ED course: Patient's headache has improved after medications IV. 06:57 Transition of care: After a detail discussion of the patient's case, care is sp4 transferred to Madhuri Diamond MD. 07:02 ED course: EXAM DESCRIPTION: CT - Head Brain Wo Cont - 12/16/2023 6:48 am CLINICAL sp4 HISTORY: new onset headache COMPARISON: No comparisons TECHNIQUE: All CT scans are performed using dose optimization technique as appropriate and may include automated exposure control or mA/KV adjustment according to patient size. FINDINGS: No intracranial hemorrhage, hydrocephalus or extra-axial fluid collection.No areas of brain edema or evidence of midline shift. The paranasal sinuses and mastoids are clear. The calvarium is intact. IMPRESSION: No acute intracranial abnormality. . 07:05 Data reviewed: lab test result(s), UPT: positive radiologic studies. ED course: sp4 Positive supposed to be positive. 12/15 06:03 Order name: Test, Urine; Complete Time: 07:02 sp4 12/15 06:03 Order name: CT Head Brain wo Cont; Complete Time: 07:02 sp4 Administered Medications: 06:39 Drug: metoCLOPramide IVP 10 mg IVP once; over 1 to 2 minutes Route: IVP; Site: right as9 antecubital; 07:26 Follow up: Response: No adverse reaction; Marked relief of symptoms as9 06:39 Drug: diphenhydrAMINE IVP 50 mg IVP once Route: IVP; Site: right antecubital; as9 07:26 Follow up: Response: No adverse reaction; Marked relief of symptoms as9 06:39 Drug: NS 0.9% IV 1000 ml IV at 1 bolus Per protocol; 1000 mL bolus Route: IV; Rate: 1 as9 bolus; Site: right antecubital; 07:26 Follow up: IV Status: Completed infusion; IV Intake: 1000ml as9 07:21 Not Given (not applicable at this timee): [id number] mg IVP once as9 Disposition Summary: 12/16/23 07:06 Discharge Ordered Notes: 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
[2023-12-16 07:45] VITALS: BP 114/71; TEMP 98; O2SAT 100
== END ==
LOC: ER 05:37
DX: Z32.01 Encounter for pregnancy test, result positive (principal); G43.009 Migraine without aura, not intractable, without status migrainosus; Z88.0 Allergy status to penicillin
CPT/HCPCS: 96361; 81025; 70450; 96375; 96374; 99284; J2765; J1200; J7030